=== PATIENT | female | born 1940 | race Caucasian/White ===

== ENCOUNTER 2018-11-07 09:52 | Emergency (ER) | payer MEDICARE, BC ==
--- NOTE | 2018-11-07 10:17 | EDM.PDOC ---
ED HPI GENERAL MEDICAL PROBLEM - General Stated Complaint: PAIN IN BOTH FEET AND SWOLLEN Time Seen by Provider: 11/07/18 10:30 Source of Information: Reports: Patient History Limitations: Reports: No Limitations - History of Present Illness INITIAL COMMENTS - FREE TEXT/NARRATIVE: Patient is a 78-year-old female who presents today with concern for the bottom of her feet hurting so bad that she can't walk. She states this started last night while she was at supper and by the time she got home it was so painful she was unable to walk. She is quite concerned because she needs to be able to walk and to take care of her . She also has chronic pain in her hips and knees which makes it difficult to walk as well, but she denies any pain in her feet until last night. She states she did have some tingling which she always thought was from the diabetes. She has history of chronic musculoskeletal pain of many kinds per her report. Extensive history of diabetes, uncertain what her last A1c was. She denies any back pain or any troubles with her balance. She denies any other significant past medical history except for a stroke a few years ago, at that time was having trouble with balance but then seemed to resolve. No recent new or different medications. She does not note any numbness , she has no problem in her hands, she has no joint swelling. She tried taking some meloxicam last night but it didn't help at all. Bilateral Feet Pain Score (Numeric/FACES): 8 - Related Data Allergies Allergy/AdvReac Type Severity Reaction Status Date / Time No Known Allergies Allergy Verified 11/07/18 10:12 Home Meds: Home Meds Acetaminophen with Codeine [Acetaminophen-Cod #3] 1 tab PO Q6H PRN 11/07/18 [ History] Gabapentin [Neurontin] 300 mg PO BID #14 cap 11/07/18 [Rx] Levothyroxine 75 mcg PO DAILY 11/07/18 [History] Meloxicam 15 mg PO DAILY 11/07/18 [History] Triamterene/Hydrochlorothiazid [Triamterene-HCTZ 37.5-25 MG] 1 tab PO DAILY 01/15 [History] metFORMIN [Glucophage] 1,000 mg PO BID 11/07/18 [History] Past Medical History Musculoskeletal History: Reports: Fibromyalgia, Osteoarthritis Neurological History: Reports: CVA Endocrine/Metabolic History: Reports: Diabetes, Type II, Obesity/BMI 30+ Social & Family History - Family History Family Medical History: Noncontributory - Tobacco Use Smoking Status *Q: Never Smoker - Caffeine Use Caffeine Use: Reports: None - Alcohol Use Alcohol Use History: No - Recreational Drug Use Recreational Drug Use: No ED ROS GENERAL - Review of Systems Review Of Systems: ROS reveals no pertinent complaints other than HPI. ED EXAM, GENERAL - Physical Exam Exam: See Below Free Text/Narrative:: Gen.: Alert, no acute distress. Heart is regular rate and rhythm, lungs are clear throughout with no wheezes or crackles. Abdomen obese, soft nontender. Peripheral pulses +2 in both the upper and lower extremities. There is no joint swelling. Very slight trace of lower extremity edema creating a sock line, which she states is normal for her. The bottoms of the feet appear to have dry skin but otherwise no redness or signs of cellulitis, there is no open lesions or wounds, and there is no significant swelling anywhere in the feet. Dorsalis pedis pulses are palpable. There is hypertrophy of the nails and the large great toenail is missing on both sides. Proprioception difficult to tell if it is intact in the big toe. She seems to have sensation everywhere grossly, monofilament not performed. She is able to flex and extend her ankles without difficulty Course - Vital Signs Text/Narrative:: exam does not show any obvious abnormalities. History most consistent with diabetic neuropathy or other peripheral neuropathy, but seems like very quick onset. Will get xrays. Last Recorded V/S: Last Vital Signs Temp 36.8 C 11/07/18 09:52 Pulse 92 11/07/18 09:52 Resp 18 11/07/18 09:52 BP 142/58 H 11/07/18 09:52 Pulse Ox 94 L 11/07/18 09:52 - Orders/Labs/Meds Meds: Medications Discontinued Medications Generic Name Dose Route Start Last Admin Trade Name Jaquelin PRN Reason Stop Dose Admin Gabapentin 100 mg 11/07/18 12:28 11/07/18 12:42 Neurontin PO 11/07/18 12:29 100 mg ONETIME ONE Administration - Re-Assessments/Exams Free Text/Narrative Re-Assessment/Exam: 11/07/18 xray reviewed, Osteoarthritis but no fractures seen. Official read pending. recommended followup with PCP very soon to re-assess. Given Rx for low dose gabapentin to start over the next couple days. Departure - Departure Time of Disposition: 12:23 Disposition: Home, Self-Care 01 Condition: Good Clinical Impression: Peripheral neuropathy - Discharge Information *PRESCRIPTION DRUG MONITORING PROGRAM REVIEWED*: Yes *COPY OF PRESCRIPTION DRUG MONITORING REPORT IN PATIENT TAMIKO: No Prescriptions: Gabapentin [Neurontin] 300 mg PO BID #14 cap Instructions: Peripheral Neuropathy Referrals: Bjorn Meza MD [Primary Care Provider] - Additional Instructions: Started dose of gabapentin given here, and prescription given to picking crew supervisor. He may take a second dose tonight if you want. Recommend this point to take just twice a day, and follow up with PCP within the next few days to determine further course of action. No signs of acute infection and I do not see a fracture on the x-ray. It does look like you have some arthritis in your feet. If the radiologist has other x- ray findings we will give you a call Given the possibility of inflammation due to arthritis, recommend taking the meloxicam regularly for just the next couple of days.
[2018-11-07] MEDS ORDERED: Gabapentin 100 MG Cap PO ONE (12:28)
--- NOTE | 2018-11-07 15:00 | CR ---
INDICATION: Bilateral foot pain, no history of injury. BILATERAL FEET: Three views of the feet were obtained with a total of 6 images and revealed degenerative changes at the DIPJs of the 2nd and 3rd toes of the left foot to a minimal degree and very minimal at the 4th toe distal interphalangeal joint. There are also some minimal degenerative changes at the 1st metatarsotarsal joint on the left and minimally on the right. Also on both sides, there is very minimal degenerative change at the 1st metatarsophalangeal joints. At the distal interphalangeal joints of the 3rd and 4th toes, as well as 5th toe of the right foot, there are also degenerative changes, which are most severe at the 2nd and 3rd toes. There also appears to be some degenerative change at the PIPJ of the 3rd toe on the right. Plantar calcaneal spurs of moderately large size are noted, larger on the left than right. There are some hypertrophic changes at the left tarsus, especially the naviculocuneiform joint. Calcification is noted at the Achilles tendon insertion on the right, which may be on the basis of previous injury in that area with dystrophic calcification. A definite acute fracture or dislocation was not identified. IMPRESSION: Osteoarthritis and calcaneal spurs, as noted above. MTDD
== END 2018-11-07 13:05 | disposition home or self-care (01) ==
LOC: FB.ED 09:52
DX: G62.9 Polyneuropathy, unspecified (principal); E11.9 Type 2 diabetes mellitus without complications; M19.90 Unspecified osteoarthritis, unspecified site; E66.9 Obesity, unspecified; Z68.35 Body mass index [BMI] 35.0-35.9, adult; Z79.84 Long term (current) use of oral hypoglycemic drugs; Z79.899 Other long term (current) drug therapy
CPT/HCPCS: 73630; 82962; 99284; A9270

== ENCOUNTER 2020-01-12 16:39 | Emergency (ER) | payer BC, MEDICARE ==
[2020-01-12] MEDS ORDERED: Ondansetron 4 MG Tab.DIS PO ONE (16:40)
[2020-01-12] MEDS ORDERED: Ondansetron 4 MG/2 ML SDV IVPUSH PRN (17:37)
[2020-01-12] MEDS ORDERED: Sodium Chloride 0.9% 1,000 ML IV SCH (17:45)
--- NOTE | 2020-01-12 21:18 | PCM.SN.2 ---
- Free Text/Narrative Note: 79-year-old female who was seen by Dr. Field. Please see his note in regard to this emergency department visit. She was turned over to me pending IV fluids and for reevaluation after the IV fluids. Briefly, the patient developed nasal congestion, cough, body aches, fever and malaise approximately 6 days ago. She was seen in the clinic and tested recoded and apparently that test came back positive for Dr. Field. The past 2 days the patient has had vomiting and diarrhea and she reports that the vomiting has been nonbilious and the diarrhea has been loose, nonbloody and only small amounts. She has not been eating that well and has been trying to drink liquids but not drinking that well. She has had urine output but less than usual. No shortness of breath. Her major complaint are fever and the nausea with vomiting. Physical examination: The patient is awake and alert. She does not appear toxic. She is having no respiratory stress. Her pharynx appears moist. Her neck is supple. Chest shows good oral excursion with no increased work of breathing. Her extremities are well perfused. Neurologic she will follow Dr. Obrien Her CBC was normal. A BUN was 42 and a creatinine was 1.9. Urinalysis showed no definite infection. ED course: She is status post 1 L of normal saline IV as a bolus. She reports she feels improved. She also was given Zofran IV. She has some mild nausea but has had no more vomiting since in the emergency department. She has been able to drink liquids in the emergency department without problems. As was stated, she feels tired but improved and is feeling ready for discharge home. Assessment: COVID 19 production. Vomiting and diarrhea with dehydration. Mild acute kidney injury. Plan: The patient was given a prescription for Zofran 4 mg ODT and also Imodium 2 mg capsules. She was given a dose of the Imodium in the emergency department. See her discharge instructions.
[2020-01-12] MEDS ORDERED: Loperamide 2 MG Cap PO ONE (21:45)
--- NOTE | 2020-01-13 14:41 | CR ---
INDICATION: Cough. CHEST TWO VIEWS: PA and lateral views of the chest were obtained 01/12/20 and reveal the heart to be normal in size transversely. However, on the lateral view there is question of a mild degree of left ventricular enlargement. The aorta is somewhat tortuous with minimal calcification suggested in the arch. An active infiltrate or effusion was not identified. Evidence of exogenous obesity is noted. Dextroconvex scoliosis of the lower middle thoracic spine is noted with bridging hyperostotic changes in the mid thoracic spine. IMPRESSION: No acute process - findings as noted above. MTDD
== END 2020-01-12 22:29 | disposition home or self-care (01) ==
LOC: FB.ED 16:39
DX: K52.9 Noninfective gastroenteritis and colitis, unspecified (principal); U07.1 COVID-19; E11.42 Type 2 diabetes mellitus with diabetic polyneuropathy; I10 Essential (primary) hypertension; E03.9 Hypothyroidism, unspecified; E66.9 Obesity, unspecified; Z79.899 Other long term (current) drug therapy
CPT/HCPCS: 36415; 71046; 80053; 81001; 83615; 85025; 96374; 99284; A9270; J2405; J7030

== ENCOUNTER 2021-02-27 09:49 | Observation (INO) | payer MEDICARE ==
[2021-02-27] MEDS ORDERED: Sodium Chloride 0.9% 10 ML Syringe FLUSH PRN (09:51)
[2021-02-27] MEDS ORDERED: Albuterol/Ipratropium 3.0-0.5 MG/3 ML Neb Soln NEB STA (09:57)
[2021-02-27] MEDS ORDERED: Ketorolac 30 MG/ML SDV IVPUSH STA (09:57)
[2021-02-27] MEDS ORDERED: methylPREDNISolone Sodium Succinate 125 MG/2 ML SDV IVPUSH STA (09:57)
[2021-02-27] MEDS ORDERED: Sodium Chloride 0.9% 1,000 ML IV SCH ×2 (10:00→15:15)
[2021-02-27] MEDS ORDERED: Acetaminophen/HYDROcodone 325-5 MG Tab PO STA (10:11)
[2021-02-27] MEDS ORDERED: Morphine 2 MG/ML SYRINGE IVPUSH STA (12:14)
--- NOTE | 2021-02-27 12:14 | EDM.PDOC ---
ED HPI GENERAL MEDICAL PROBLEM - General Stated Complaint: LEG PAIN Time Seen by Provider: 02/27/21 10:00 Source of Information: Reports: Patient, Family History Limitations: Reports: No Limitations - History of Present Illness INITIAL COMMENTS - FREE TEXT/NARRATIVE: Patient is a 80 YO WM who presented to the ED because of sever pain on her feet and leg. She described it as stabbing and shocklike sensation,9/10 which got worse since yesterday. She is no t able to step on her feet because of the pain. She has has a history of peripheral neuropathy and feels like it. She took her pregabalin without any relief. Bilateral Feet Pain Score (Numeric/FACES): 4 - Related Data Allergies Allergy/AdvReac Type Severity Reaction Status Date / Time No Known Allergies Allergy Verified 01/12/20 21:02 Home Meds: Home Meds Acetaminophen with Codeine [Acetaminophen-Cod #3] 1 tab PO Q6H PRN 11/07/18 [History] Levothyroxine 88 mcg PO DAILY 11/07/18 [History] Triamterene/Hydrochlorothiazid [Triamterene-HCTZ 37.5-25 MG] 1 tab PO DAILY 11/07/18 [History] Loperamide [Imodium] 2 mg PO ASDIRECTED #12 cap 01/12/20 [Rx] Acetaminophen/Codeine [Tylenol with Codeine No.3 300MG/30MG] 1 tab PO BEDTIME 02/27/21 [History] Dextrin [Fiber] 1 scoop PO DAILY 02/27/21 [History] Metoprolol Succinate 50 mg PO DAILY 02/27/21 [History] Pregabalin [Lyrica] 25 mg PO BID 02/27/21 [History] amLODIPine [Norvasc] 5 mg PO DAILY 02/27/21 [History] cephALEXin [Cephalexin] 250 mg PO TID 02/27/21 [History] glipiZIDE [Glipizide ER] 5 mg PO DAILY 02/27/21 [History] glipiZIDE [Glipizide ER] 10 mg PO DAILY 02/27/21 [History] hydrOXYzine pamoate [Hydroxyzine Pamoate] 25 mg PO BEDTIME 02/27/21 [History] Past Medical History Musculoskeletal History: Reports: Fibromyalgia, Osteoarthritis Neurological History: Reports: CVA Endocrine/Metabolic History: Reports: Diabetes, Type II, Obesity/BMI 30+ - Infectious Disease History Infectious Disease History: Reports: Chicken Pox, Measles, Mumps Social & Family History - Family History Family Medical History: No Pertinent Family History - Caffeine Use Caffeine Use: Reports: Coffee ED ROS GENERAL - Review of Systems Review Of Systems: See Below Constitutional: Reports: No Symptoms HEENT: Reports: No Symptoms Respiratory: Reports: No Symptoms Cardiovascular: Reports: No Symptoms Endocrine: Reports: No Symptoms GI/Abdominal: Reports: No Symptoms : Reports: No Symptoms Musculoskeletal: Reports: Other (bilateral foot pain) Skin: Reports: No Symptoms Neurological: Reports: No Symptoms Psychiatric: Reports: No Symptoms Hematologic/Lymphatic: Reports: No Symptoms ED EXAM, GENERAL - Physical Exam Exam: See Below Exam Limited By: No Limitations General Appearance: Alert, No Apparent Distress Ears: Normal External Exam, Normal Canal Nose: Normal Inspection, Normal Mucosa, No Blood Throat/Mouth: Normal Inspection, Normal Lips, Normal Teeth, Normal Gums, Normal Oropharynx, Normal Voice Head: Atraumatic, Normocephalic Neck: Normal Inspection, Supple, Non-Tender, Full Range of Motion Respiratory/Chest: No Respiratory Distress, Lungs Clear, Normal Breath Sounds, No Accessory Muscle Use, Chest Non-Tender Cardiovascular: Normal Peripheral Pulses, Regular Rate, Rhythm, No Edema, No Gallop, No JVD, No Murmur, No Rub GI/Abdominal: Normal Bowel Sounds, Soft, Non-Tender, No Organomegaly, No Distention, No Abnormal Bruit Back Exam: Normal Inspection, Full Range of Motion Extremities: Normal Inspection, Normal Range of Motion, Non-Tender, No Pedal Edema, Normal Capillary Refill Neurological: Alert, Oriented, CN II-XII Intact, Normal Cognition, Normal Gait, Normal Reflexes, No Motor/Sensory Deficits Psychiatric: Normal Affect, Normal Mood Skin Exam: Warm, Dry, Intact, Normal Color, No Rash Course - Vital Signs Text/Narrative:: Lab tresult was reviewed and discussed with patient and her daughter Last Recorded V/S: Last Vital Signs Temp 37.0 C 02/28/21 05:30 Pulse 73 02/28/21 05:30 Resp 16 02/28/21 05:30 BP 124/71 02/28/21 05:30 Pulse Ox 93 L 02/28/21 05:30 - Orders/Labs/Meds Orders: Active Orders 24 hr Category Date Time Status Patient Status [ADT] Routine ADT 02/27/21 15:03 Active Oxygen Therapy [RC] PRN Care 02/27/21 15:03 Active Pulse Oximetry [RC] PRN Care 02/27/21 15:05 Active Up With Assistance [RC] ASDIRECTED Care 02/27/21 15:03 Active VTE/DVT Education [RC] Per Unit Routine Care 02/27/21 15:03 Active Vital Signs [RC] 08,12,16,20,00,04 Care 02/27/21 15:03 Active Heart Healthy Diet [DIET] Diet 02/27/21 Dinner Active Chest 1V Frontal [CR] Stat Exams 02/27/21 09:55 Taken Acetaminophen/HYDROcodone [[place] 325-5 MG] Med 02/27/21 15:03 Active 1 tab PO Q4H PRN Docusate Sodium/Sennosides [Senna Plus] Med 02/27/21 15:03 Active 1 tab PO BID PRN Ondansetron [Zofran] Med 02/27/21 15:03 Active 4 mg IV Q4H PRN Sodium Chloride 0.9% [Saline Flush] Med 02/27/21 09:51 Active 10 ml FLUSH ASDIRECTED PRN Saline Lock Insert [OM.PC] Routine Oth 02/27/21 09:51 Ordered Sequential Compression Device [OM.PC] Per Unit Routine Oth 02/27/21 15:05 Ordered Medication Orders Acetaminophen/Codeine Phosphate (Acetaminophen/Codeine 300-30 Mg Tab) 1 tab PO BEDTIME [facility] Last Admin: 02/27/21 20:39 Dose: 1 tab Documented by: BONNIE Acetaminophen/Codeine Phosphate (Acetaminophen/Codeine 300-30 Mg Tab) 1 tab PO Q6H PRN PRN Reason: Pain Hydrocodone Bitart/Acetaminophen (Acetaminophen/Hydrocodone 325-5 Mg Tab) 1 tab PO Q4H PRN PRN Reason: Pain Amlodipine Besylate (Amlodipine 5 Mg TabOwn Med) 5 mg PO DAILY [facility] Cephalexin (Cephalexin 250 Mg CapOwn Med) 250 mg PO TID [facility] Stop: 02/28/21 21:01 Last Admin: 02/27/21 20:41 Dose: 250 mg Documented by: BONNIE Enoxaparin Sodium (Enoxaparin 30 Mg/0.3 Ml Syringe) 30 mg SUBCUT Q24H [facility] Last Admin: 02/27/21 16:44 Dose: 30 mg Documented by: FATOUMATA Glipizide (Glipizide 10 Mg Tab.ErOwn Med) 10 mg PO DAILY [facility] Glipizide (Glipizide 5 Mg Tab.ErOwn Med) 5 mg PO DAILY [facility] Levothyroxine Sodium (Levothyroxine 88 Mcg TabOwn Med) 88 mcg PO ACBREAKFAST [facility] Last Admin: 02/28/21 06:20 Dose: 88 mcg Documented by: BONNIE Loperamide HCl (Loperamide 2 Mg Cap) 2 mg PO ASDIRECTED [facility] Metoprolol Succinate (Metoprolol Succinate 50 Mg Tab.ErOwn Med) 50 mg PO DAILY [facility] Morphine Sulfate (Morphine 2 Mg/Ml Syringe) 2 mg IVPUSH Q6H PRN PRN Reason: Pain Dextrin [Fiber] 350 (Gm PowderOwn Med) 1 scoop PO DAILY [facility] Hydroxyzine Pamoate 25 Mg CapsuleOwn Med 25 mg PO BEDTIME [facility] Last Admin: 02/27/21 20:41 Dose: 25 mg Documented by: BONNIE Ondansetron HCl (Ondansetron 4 Mg/2 Ml Sdv) 4 mg IV Q4H PRN PRN Reason: Nausea/Vomiting Pregabalin (Pregabalin 25 Mg Cap) 25 mg PO BID [facility] Last Admin: 02/27/21 20:41 Dose: 25 mg Documented by: BONNIE Senna/Docusate Sodium (Docusate Sodium/Sennosides 50-8.6 Mg Tab) 1 tab PO BID PRN PRN Reason: Constipation Sodium Chloride (Sodium Chloride 0.9% 10 Ml Syringe) 10 ml FLUSH ASDIRECTED PRN PRN Reason: Keep Vein Open Triamterene/Hydrochlorothiazide (Hydrochlorothiazide/Triamterene 25-37.5 TabOwn Med) 1 each PO DAILY [facility] Labs: Laboratory Tests 02/27/21 02/27/21 Range/Units 10:32 10:32 WBC 11.5 H (3.0-10.3) x10-3/uL RBC 4.23 (3.60-5.20) x10(6)uL Hgb 12.3 (11.4-15.5) g/dL Hct 38.6 (34.2-48.2) % MCV 91.3 (76.7-100.5) fL MCH 29.0 (23.9-33.9) pg MCHC 31.8 L (31.9-34.8) g/dL RDW 13.2 (12.3-16.5) % Plt Count 287 (151-488) x10(3)uL MPV 8.0 (7.1-12.4) fL Neut % (Auto) 79.7 H (30.8-76.2) % Lymph % (Auto) 11.8 L (18.4-52.1) % [place] % (Auto) 7.0 (4.4-15.7) % Eos % (Auto) 0.9 (0.6-8.1) % Baso % (Auto) 0.6 (0.2-1.5) % Neut # (Auto) 9.2 H (1.5-6.3) x10-3/uL Lymph # (Auto) 1.4 (1.0-4.4) x10-3/uL [place] # (Auto) 0.8 (0.3-1.0) x10-3/uL Eos # (Auto) 0.1 (0.0-0.8) x10-3/uL Baso # (Auto) 0.1 (0.0-0.1) x10-3/uL Sodium 141 (135-145) mmol/L Potassium 3.8 (3.5-5.3) mmol/L Chloride 104 (100-110) mmol/L Carbon Dioxide 25 (21-32) mmol/L BUN 47 H (7-18) mg/dL Creatinine 2.0 H* (0.55-1.02) mg/dL Est Cr Clr Drug Dosing TNP Estimated GFR (MDRD) 24 L (>60) BUN/Creatinine Ratio 23.5 H (9-20) Glucose 219 H D (80-116) mg/dL Calcium 9.4 (8.6-10.2) mg/dL Total Bilirubin 0.3 (0.1-1.3) mg/dL AST 17 D (5-25) IU/L ALT 20 D (12-36) U/L Alkaline Phosphatase 142 H (56-112) IU/L Total Protein 7.9 (6.0-8.0) g/dL Albumin 3.6 (3.2-4.6) g/dL Globulin 4.3 g/dL Albumin/Globulin Ratio 0.8 Meds: Medications Generic Name Dose Route Start Last Admin Trade Name Freq PRN Reason Stop Dose Admin Acetaminophen/Codeine Phosphate 1 tab 02/27/21 21:00 02/27/21 20:39 Acetaminophen/Codeine 300-30 Mg Tab PO 1 tab BEDTIME [facility] Administration Acetaminophen/Codeine Phosphate 1 tab 02/27/21 17:33 Acetaminophen/Codeine 300-30 Mg Tab PO Q6H PRN Pain Hydrocodone Bitart/Acetaminophen 1 tab 02/27/21 15:03 Acetaminophen/Hydrocodone 325-5 Mg Tab PO Q4H PRN Pain Amlodipine Besylate 5 mg 02/28/21 09:00 Amlodipine 5 Mg TabOwn Med PO DAILY [facility] Cephalexin 250 mg 02/27/21 21:00 02/27/21 20:41 Cephalexin 250 Mg CapOwn Med PO 02/28/21 21:01 250 mg TID [facility] Administration Enoxaparin Sodium 30 mg 02/27/21 16:30 02/27/21 16:44 Enoxaparin 30 Mg/0.3 Ml Syringe SUBCUT 30 mg Q24H [facility] Administration Glipizide 10 mg 02/28/21 09:00 Glipizide 10 Mg Tab.ErOwn Med PO DAILY [facility] Glipizide 5 mg 02/28/21 09:00 Glipizide 5 Mg Tab.ErOwn Med PO DAILY [facility] Levothyroxine Sodium 88 mcg 02/28/21 07:30 02/28/21 06:20 Levothyroxine 88 Mcg TabOwn Med PO 88 mcg ACBREAKFAST [facility] Administration Loperamide HCl 2 mg 02/27/21 17:45 Loperamide 2 Mg Cap PO ASDIRECTED [facility] Metoprolol Succinate 50 mg 02/28/21 09:00 Metoprolol Succinate 50 Mg Tab.ErOwn Med PO DAILY [facility] Morphine Sulfate 2 mg 02/27/21 17:34 Morphine 2 Mg/Ml Syringe IVPUSH Q6H PRN Pain Dextrin [Fiber] 350 1 scoop 02/28/21 09:00 Gm PowderOwn Med PO DAILY [facility] Hydroxyzine Pamoate 25 mg 02/27/21 21:00 02/27/21 20:41 25 Mg CapsuleOwn PO 25 mg Med BEDTIME [facility] Administration Ondansetron HCl 4 mg 02/27/21 15:03 Ondansetron 4 Mg/2 Ml Sdv IV Q4H PRN Nausea/Vomiting Pregabalin 25 mg 02/27/21 21:00 02/27/21 20:41 Pregabalin 25 Mg Cap PO 25 mg BID [facility] Administration Senna/Docusate Sodium 1 tab 02/27/21 15:03 Docusate Sodium/Sennosides 50-8.6 Mg Tab PO BID PRN Constipation Sodium Chloride 10 ml 02/27/21 09:51 Sodium Chloride 0.9% 10 Ml Syringe FLUSH ASDIRECTED PRN Keep Vein Open Triamterene/Hydrochlorothiazide 1 each 02/28/21 09:00 Hydrochlorothiazide/Triamterene 25-37.5 TabOwn Med PO DAILY [facility] Discontinued Medications Generic Name Dose Route Start Last Admin Trade Name Freq PRN Reason Stop Dose Admin Hydrocodone Bitart/Acetaminophen 2 tab 02/27/21 10:11 02/27/21 11:15 Acetaminophen/Hydrocodone 325-5 Mg Tab PO 02/27/21 10:12 2 tab NOW STA Administration Albuterol/Ipratropium 3 ml 02/27/21 09:57 02/27/21 14:59 Albuterol/Ipratropium 3.0-0.5 Mg/3 Ml Neb Soln NEB 02/27/21 09:58 Not Given NOW STA Enoxaparin Sodium 40 mg 02/27/21 15:15 Enoxaparin 40 Mg/0.4 Ml Syringe SUBCUT Q24H [facility] Hydromorphone HCl 1 mg 02/27/21 13:03 02/27/21 13:07 Hydromorphone 2 Mg/Ml Sdv IVPUSH 02/27/21 13:04 1 mg NOW STA Administration Sodium Chloride 1,000 mls @ 999 mls/hr 02/27/21 10:00 02/27/21 11:15 Normal Saline IV 999 mls/hr ASDIRECTED [facility] Administration Sodium Chloride 1,000 mls @ 125 mls/hr 02/27/21 15:15 02/27/21 16:45 Normal Saline IV 125 mls/hr ASDIRECTED [facility] Administration Ketorolac Tromethamine 30 mg 02/27/21 09:57 02/27/21 14:58 Ketorolac 30 Mg/Ml Sdv IVPUSH 02/27/21 09:58 30 mg NOW STA Administration Methylprednisolone Sodium Succinate 125 mg 02/27/21 09:57 02/27/21 15:00 Methylprednisolone Sodium Succinate 125 Mg/2 Ml Sdv IVPUSH 02/27/21 09:58 Not Given NOW STA Morphine Sulfate 2 mg 02/27/21 12:14 02/27/21 14:59 Morphine 2 Mg/Ml Syringe IVPUSH 02/27/21 12:15 Not Given NOW STA Morphine Sulfate 2 mg 02/27/21 15:15 02/27/21 15:55 Morphine 2 Mg/Ml Syringe IVPUSH Not Given Q2H [facility] Pregabalin 25 mg 02/27/21 21:00 02/27/21 20:39 Pregabalin 25 Mg CapOwn Med PO 25 mg BID [facility] Administration Departure - Departure Time of Disposition: 15:00 Disposition: Refer to Observation Condition: Good Clinical Impression: Peripheral neuropathy, Dehydration, BONNIE (acute kidney injury), Diabetes mellitus Hypertension Qualifiers: Hypertension type: primary hypertension Qualified Code(s): I10 - Essential (primary) hypertension - Discharge Information - My Orders Last 24 Hours: My Active Orders 02/27/21 09:51 Sodium Chloride 0.9% [Saline Flush] 10 ml FLUSH ASDIRECTED PRN Saline Lock Insert [OM.PC] Routine 02/27/21 09:55 Chest 1V Frontal [CR] Stat 02/27/21 15:03 Patient Status [ADT] Routine Oxygen Therapy [RC] PRN Up With Assistance [RC] ASDIRECTED VTE/DVT Education [RC] Per Unit Routine Vital Signs [RC] 08,12,16,20,00,04 Acetaminophen/HYDROcodone [[place] 325-5 MG] 1 tab PO Q4H PRN Docusate Sodium/Sennosides [Senna Plus] 1 tab PO BID PRN Ondansetron [Zofran] 4 mg IV Q4H PRN 02/27/21 15:05 Pulse Oximetry [RC] PRN Sequential Compression Device [OM.PC] Per Unit Routine 02/27/21 Dinner Heart Healthy Diet [DIET] - Assessment/Plan Last 24 Hours: My Active Orders 02/27/21 09:51 Sodium Chloride 0.9% [Saline Flush] 10 ml FLUSH ASDIRECTED PRN Saline Lock Insert [OM.PC] Routine 02/27/21 09:55 Chest 1V Frontal [CR] Stat 02/27/21 15:03 Patient Status [ADT] Routine Oxygen Therapy [RC] PRN Up With Assistance [RC] ASDIRECTED VTE/DVT Education [RC] Per Unit Routine Vital Signs [RC] 08,12,16,20,00,04 Acetaminophen/HYDROcodone [[place] 325-5 MG] 1 tab PO Q4H PRN Docusate Sodium/Sennosides [Senna Plus] 1 tab PO BID PRN Ondansetron [Zofran] 4 mg IV Q4H PRN 02/27/21 15:05 Pulse Oximetry [RC] PRN Sequential Compression Device [OM.PC] Per Unit Routine 02/27/21 Dinner Heart Healthy Diet [DIET]
[2021-02-27] MEDS ORDERED: HYDROmorphone 2 MG/ML SDV IVPUSH STA (13:03)
[2021-02-27] MEDS ORDERED: Ondansetron 4 MG/2 ML SDV IV PRN (15:03)
[2021-02-27] MEDS ORDERED: Acetaminophen/HYDROcodone 325-5 MG Tab PO PRN (15:03)
[2021-02-27] MEDS ORDERED: Enoxaparin 40 MG/0.4 ML Syringe SUBCUT SCH (15:15)
[2021-02-27] MEDS: Morphine 2 MG/ML SYRINGE IVPUSH SCH (15:55)
[2021-02-27] MEDS: Enoxaparin 30 MG/0.3 ML Syringe SUBCUT SCH (16:44)
[2021-02-27] MEDS ORDERED: Acetaminophen/Codeine 300-30 MG Tab PO PRN (17:33)
[2021-02-27] MEDS ORDERED: Morphine 2 MG/ML SYRINGE IVPUSH PRN (17:34)
--- NOTE | 2021-02-27 17:37 | PCM.HP.2 ---
H&P History of Present Illness - General Date of Service: 02/27/21 Admit Problem/Dx: Admission Diagnosis/Problem Admission Diagnosis/Problem Weakness Source of Information: Patient, Provider History Limitations: Reports: No Limitations - History of Present Illness Initial Comments - Free Text/Narative: This is a 80-year-old female admitted to the ER because of inability to walk. She complains of severe leg and feet pain which has gotten worse practically overnight. She does have a prior history of peripheral neuropathy, type 2 diabetes obesity. She describes paresthesias and while at home she was unable to support herself. She lives at home independently. She has a history of MDD,HTN, and chronic kidney disease, with a baseline creatinine 1.8 Bilateral Feet Pain Score (Numeric/FACES): 4 - Related Data Allergies/Adverse Reactions: Allergies Allergy/AdvReac Type Severity Reaction Status Date / Time No Known Allergies Allergy Verified 01/12/20 21:02 Home Medications: Home Meds Acetaminophen with Codeine [Acetaminophen-Cod #3] 1 tab PO Q6H PRN 11/07/18 [Hi story] Levothyroxine 88 mcg PO DAILY 11/07/18 [History] Triamterene/Hydrochlorothiazid [Triamterene-HCTZ 37.5-25 MG] 1 tab PO DAILY 11/07/18 [History] Loperamide [Imodium] 2 mg PO ASDIRECTED #12 cap 01/12/20 [Rx] Acetaminophen/Codeine [Tylenol with Codeine No.3 300MG/30MG] 1 tab PO BEDTIME 02/27/21 [History] Dextrin [Fiber] 1 scoop PO DAILY 02/27/21 [History] Metoprolol Succinate 50 mg PO DAILY 02/27/21 [History] Pregabalin [Lyrica] 25 mg PO BID 02/27/21 [History] amLODIPine [Norvasc] 5 mg PO DAILY 02/27/21 [History] cephALEXin [Cephalexin] 250 mg PO TID 02/27/21 [History] glipiZIDE [Glipizide ER] 5 mg PO DAILY 02/27/21 [History] glipiZIDE [Glipizide ER] 10 mg PO DAILY 02/27/21 [History] hydrOXYzine pamoate [Hydroxyzine Pamoate] 25 mg PO BEDTIME 02/27/21 [History] Past Medical History HEENT History: Reports: Cataract Cardiovascular History: Reports: Hypertension Respiratory History: Reports: Sleep Apnea Gastrointestinal History: Reports: Other (See Below) Other Gastrointestinal History: Bulemia as young girl Genitourinary History: Reports: Chronic Renal Insuffiency, Diabetic Nephropathy BUTTER[employer]INUOUS CHURN History: Reports: , Spontaneous Other OB/BYN History: 4 pregancies Musculoskeletal History: Reports: Arthritis, Fibromyalgia Neurological History: Reports: CVA Psychiatric History: Reports: Anxiety Endocrine/Metabolic History: Reports: Diabetes, Type II, Hypothyroidism, Obesity/BMI 30+ Immunologic History: Reports: None Oncologic (Cancer) History: Reports: Other (See Below) Other Oncologic History: Facial skin CA Dermatologic History: Reports: Other (See Below) Other Dermatologic History: facial skin cancer - Infectious Disease History Infectious Disease History: Reports: Chicken Pox, Measles, Mumps - Past Surgical History HEENT Surgical History: Reports: Cataract Surgery, Oral Surgery Other HEENT Surgeries/Procedures: dentures Respiratory Surgical History: Reports: None GI Surgical History: Reports: Colonoscopy Female Surgical History: Reports: Salpingo-Oophorectomy Social & Family History - Family History Family Medical History: No Pertinent Family History - Tobacco Use Tobacco Use Status *Q: Never Tobacco User Second Hand Smoke Exposure: No - Caffeine Use Caffeine Use: Reports: None - Recreational Drug Use Recreational Drug Use: No H&P Review of Systems - Review of Systems: Review Of Systems: Comprehensive ROS is negative, except as noted in HPI. Exam - Exam Exam: See Below - Vital Signs Weight: 107.7 kg - Exam General: Alert HEENT: PERRLA Neck: Supple Lungs: Clear to Auscultation Cardiovascular: Regular Rate (Female) Exam: Deferred Rectal (Female) Exam: Deferred Skin: Warm Neurological: Cranial Nerves Intact, Reflexes Equal Bilateral Neuro Extensive - Mental Status: Alert, Oriented x3 Neuro Extensive - Motor, Sensory, Reflexes: CN II-XII Intact Psychiatric: Alert, Normal Affect - Patient Data Lab Results Last 24 hrs: Laboratory Results - last 24 hr 02/27/21 02/27/21 Range/Units 10:32 10:32 WBC 11.5 H (3.0-10.3) x10-3/uL RBC 4.23 (3.60-5.20) x10(6)uL Hgb 12.3 (11.4-15.5) g/dL Hct 38.6 (34.2-48.2) % MCV 91.3 (76.7-100.5) fL MCH 29.0 (23.9-33.9) pg MCHC 31.8 L (31.9-34.8) g/dL RDW 13.2 (12.3-16.5) % Plt Count 287 (151-488) x10(3)uL MPV 8.0 (7.1-12.4) fL Neut % (Auto) 79.7 H (30.8-76.2) % Lymph % (Auto) 11.8 L (18.4-52.1) % [place] % (Auto) 7.0 (4.4-15.7) % Eos % (Auto) 0.9 (0.6-8.1) % Baso % (Auto) 0.6 (0.2-1.5) % Neut # (Auto) 9.2 H (1.5-6.3) x10-3/uL Lymph # (Auto) 1.4 (1.0-4.4) x10-3/uL [place] # (Auto) 0.8 (0.3-1.0) x10-3/uL Eos # (Auto) 0.1 (0.0-0.8) x10-3/uL Baso # (Auto) 0.1 (0.0-0.1) x10-3/uL Sodium 141 (135-145) mmol/L Potassium 3.8 (3.5-5.3) mmol/L Chloride 104 (100-110) mmol/L Carbon Dioxide 25 (21-32) mmol/L BUN 47 H (7-18) mg/dL Creatinine 2.0 H* (0.55-1.02) mg/dL Est Cr Clr Drug Dosing TNP Estimated GFR (MDRD) 24 L (>60) BUN/Creatinine Ratio 23.5 H (9-20) Glucose 219 H D (80-116) mg/dL Calcium 9.4 (8.6-10.2) mg/dL Total Bilirubin 0.3 (0.1-1.3) mg/dL AST 17 D (5-25) IU/L ALT 20 D (12-36) U/L Alkaline Phosphatase 142 H (56-112) IU/L Total Protein 7.9 (6.0-8.0) g/dL Albumin 3.6 (3.2-4.6) g/dL Globulin 4.3 g/dL Albumin/Globulin Ratio 0.8 Result Diagrams: 02/28/21 06:30 02/28/21 06:30 - Problem List (1) Inability to walk SNOMED Code(s): 355377086 ICD Code: R26.2 - DIFFICULTY IN WALKING, NOT ELSEWHERE CLASSIFIED Status: Acute Current Visit: Yes (2) Peripheral neuropathy SNOMED Code(s): 315121149 ICD Code: G62.9 - POLYNEUROPATHY, UNSPECIFIED Status: Acute Current Visit: Yes (3) Diabetes type 2, controlled SNOMED Code(s): 04929352, 475578409 ICD Code: E11.9 - TYPE 2 DIABETES MELLITUS WITHOUT COMPLICATIONS Status: Acute Current Visit: Yes Qualifiers: Diabetes mellitus assisted insulin use: with buttermaker continuous churn use Proliferative retinopathy type: stable (4) Obesity SNOMED Code(s): 184068013, 088117177 ICD Code: E66.9 - OBESITY, UNSPECIFIED Status: Acute Current Visit: Yes Qualifiers: Obesity type: unspecified obesity type (5) HTN (hypertension) SNOMED Code(s): 28999328 ICD Code: I10 - ESSENTIAL (PRIMARY) HYPERTENSION Status: Acute Current Visit: Yes Qualifiers: Hypertension type: primary hypertension Qualified Code(s): I10 - Essential (primary) hypertension (6) MDD (major depressive disorder) SNOMED Code(s): 306597958 ICD Code: F32.9 - MAJOR DEPRESSIVE DISORDER, SINGLE EPISODE, UNSPECIFIED Status: Acute Current Visit: Yes Qualifiers: Major depression recurrence: recurrent (7) Hypothyroidism SNOMED Code(s): 96027504 ICD Code: E03.9 - HYPOTHYROIDISM, UNSPECIFIED Status: Acute Current Visit: Yes Problem List Initiated/Reviewed/Updated: Yes Orders Last 24hrs: Active Orders 24 hr Category Date Time Status Patient Status [ADT] Routine ADT 02/27/21 15:03 Active Oxygen Therapy [RC] PRN Care 02/27/21 15:03 Active Pulse Oximetry [RC] PRN Care 02/27/21 15:05 Active Up With Assistance [RC] ASDIRECTED Care 02/27/21 15:03 Active VTE/DVT Education [RC] Per Unit Routine Care 02/27/21 15:03 Active Vital Signs [RC] Q4H Care 02/27/21 15:03 Active Consistent Carbohydrate Diet [DIET] Diet 02/27/21 Dinner Active Heart Healthy Diet [DIET] Diet 02/27/21 Dinner Active Chest 1V Frontal [CR] Stat Exams 02/27/21 09:55 Taken BASIC METABOLIC PANEL,BMP [CHEM] AM Lab 02/28/21 05:11 Ordered CBC WITH AUTO DIFF [HEME] AM Lab 02/28/21 05:11 Ordered CORONAVIRUS COVID-19 DEVORAH [MOLEC] Stat Lab 02/27/21 17:00 Received UA W/MICROSCOPIC [URIN] Stat Lab 02/27/21 09:53 Ordered Acetaminophen/Codeine [Tylenol with Codeine No.3 300MG/ Med 02/27/21 21:00 Ordered 30MG] 1 tab PO BEDTIME Acetaminophen/Codeine [Tylenol with Codeine No.3 300MG/ Med 02/27/21 17:33 Ordered 30MG] 1 tab PO Q6H PRN Acetaminophen/HYDROcodone [[place] 325-5 MG] Med 02/27/21 15:03 Active 1 tab PO Q4H PRN Dextrin [Fiber] Med 02/28/21 09:00 Ordered 1 scoop PO DAILY Docusate Sodium/Sennosides [Senna Plus] Med 02/27/21 15:03 Active 1 tab PO BID PRN Enoxaparin [Lovenox] Med 02/27/21 16:30 Active 30 mg SUBCUT Q24H HCTZ/Triamterene [Maxzide 25-37.5 MG] Med 02/28/21 09:00 Ordered 1 tab PO DAILY Levothyroxine Med 02/28/21 09:00 Ordered 88 mcg PO DAILY Loperamide [Imodium] Med 02/27/21 17:45 Ordered 2 mg PO ASDIRECTED Metoprolol Succinate [Toprol XL] Med 02/28/21 09:00 Ordered 50 mg PO DAILY Morphine Med 02/27/21 17:34 Ordered 2 mg IVPUSH Q6H PRN Ondansetron [Zofran] Med 02/27/21 15:03 Active 4 mg IV Q4H PRN Pregabalin [Lyrica] Med 02/27/21 21:00 Ordered 25 mg PO BID Sodium Chloride 0.9% [Saline Flush] Med 02/27/21 09:51 Active 10 ml FLUSH ASDIRECTED PRN amLODIPine [Norvasc] Med 02/28/21 09:00 Ordered 5 mg PO DAILY glipiZIDE [Glucotrol XL] Med 02/28/21 09:00 Ordered 10 mg PO DAILY hydrOXYzine pamoate [Hydroxyzine Pamoate] Med 02/27/21 21:00 Ordered 25 mg PO BEDTIME Saline Lock Insert [OM.PC] Routine Oth 02/27/21 09:51 Ordered Sequential Compression Device [OM.PC] Per Unit Routine Oth 02/27/21 15:05 Ordered Resuscitation Status Routine Resus Stat 02/27/21 17:35 Ordered Medication Orders Acetaminophen/Codeine Phosphate (Acetaminophen/Codeine 300-30 Mg Tab) 1 tab PO BEDTIME [facility]BIN Acetaminophen/Codeine Phosphate (Acetaminophen/Codeine 300-30 Mg Tab) 1 tab PO Q6H PRN PRN Reason: Pain Hydrocodone Bitart/Acetaminophen (Acetaminophen/Hydrocodone 325-5 Mg Tab) 1 tab PO Q4H PRN PRN Reason: Pain Amlodipine Besylate (Amlodipine 5 Mg Tab) 5 mg PO DAILY [facility] Enoxaparin Sodium (Enoxaparin 30 Mg/0.3 Ml Syringe) 30 mg SUBCUT Q24H CORBIN Last Admin: 02/27/21 16:44 Dose: 30 mg Documented by: FATOUMATA Glipizide (Glipizide 10 Mg Tab.Er) 10 mg PO DAILY [facility] Levothyroxine Sodium (Levothyroxine 75 Mcg Tab) 88 mcg PO DAILY [facility] Morphine Sulfate (Morphine 2 Mg/Ml Syringe) 2 mg IVPUSH Q6H PRN PRN Reason: Pain Non-Formulary Medication (Dextrin [Fiber]) 1 scoop PO DAILY [facility] Non-Formulary Medication (Hydroxyzine Pamoate [Hydroxyzine Pamoate]) 25 mg PO BEDTIME [facility] Ondansetron HCl (Ondansetron 4 Mg/2 Ml Sdv) 4 mg IV Q4H PRN PRN Reason: Nausea/Vomiting Senna/Docusate Sodium (Docusate Sodium/Sennosides 50-8.6 Mg Tab) 1 tab PO BID PRN PRN Reason: Constipation Sodium Chloride (Sodium Chloride 0.9% 10 Ml Syringe) 10 ml FLUSH ASDIRECTED PRN PRN Reason: Keep Vein Open Assessment/Plan Comment:: Admit for pain control,PT,OT.
[2021-02-27] MEDS ORDERED: Loperamide 2 MG Cap PO SCH (17:45)
[2021-02-27] MEDS: Acetaminophen/Codeine 300-30 MG Tab PO SCH (20:39)
[2021-02-27] MEDS: CEPHALEXIN 250 MG PO SCH (20:41)
[2021-02-27] MEDS: HYDROXYZINE PAMOATE 25 MG PO SCH (20:41)
[2021-02-27] MEDS: Pregabalin 25 MG Cap PO SCH (20:41)
[2021-02-27] MEDS ORDERED: PREGABALIN 25 MG PO SCH (21:00)
[2021-02-28] MEDS: Levothyroxine 88 MCG Tab**OWN MED PO SCH (06:20)
[2021-02-28] MEDS: DEXTRIN PO SCH (08:15)
[2021-02-28] MEDS: GLIPIZIDE 10 MG PO SCH (08:16)
[2021-02-28] MEDS: GLIPIZIDE 5 MG PO SCH (08:16)
[2021-02-28] MEDS: CEPHALEXIN 250 MG PO SCH ×3 (08:17→21:08)
[2021-02-28] MEDS: HYDROCHLOROTHIAZIDE PO SCH (08:17)
[2021-02-28] MEDS: TRIAMTERENE PO SCH (08:17)
[2021-02-28] MEDS: amLODIPine 5 MG Tab**OWN MED PO SCH (08:18)
[2021-02-28] MEDS: Metoprolol Succinate 50 MG Tab.ER**OWN MED PO SCH (08:18)
[2021-02-28] MEDS: Pregabalin 25 MG Cap PO SCH ×2 (08:22→21:06)
--- NOTE | 2021-02-28 09:09 | PCM.PN ---
- General Info Date of Service: 02/28/21 Subjective Update: He is a 80-year-old female, was admitted for pain in the legs. This morning she has pain in the right knee, along with bilateral feet pain,denies any back pain. Functional Status: Reports: Pain Controlled, Tolerating Diet. Denies: Ambul ating - Review of Systems Pulmonary: Reports: No Symptoms Cardiovascular: Reports: No Symptoms Gastrointestinal: Reports: No Symptoms - Patient Data Vitals - Most Recent: Last Vital Signs Temp 98.6 F 02/28/21 05:30 Pulse 78 02/28/21 08:18 Resp 16 02/28/21 05:30 BP 139/49 L 02/28/21 08:18 Pulse Ox 93 L 02/28/21 05:30 Weight - Most Recent: 107.7 kg I&O - Last 24 Hours: Intake & Output 02/27/21 02/28/21 02/28/21 22:59 06:59 14:59 Intake Total 229 Output Total 200 Balance 29 Lab Results Last 24 Hours: Laboratory Results - last 24 hr 02/27/21 02/27/21 02/27/21 Range/Units 10:32 10:32 17:00 WBC 11.5 H (3.0-10.3) x10-3/uL RBC 4.23 (3.60-5.20) x10(6)uL Hgb 12.3 (11.4-15.5) g/dL Hct 38.6 (34.2-48.2) % MCV 91.3 (76.7-100.5) fL MCH 29.0 (23.9-33.9) pg MCHC 31.8 L (31.9-34.8) g/dL RDW 13.2 (12.3-16.5) % Plt Count 287 (151-488) x10(3)uL MPV 8.0 (7.1-12.4) fL Neut % (Auto) 79.7 H (30.8-76.2) % Lymph % (Auto) 11.8 L (18.4-52.1) % [place] % (Auto) 7.0 (4.4-15.7) % Eos % (Auto) 0.9 (0.6-8.1) % Baso % (Auto) 0.6 (0.2-1.5) % Neut # (Auto) 9.2 H (1.5-6.3) x10-3/uL Lymph # (Auto) 1.4 (1.0-4.4) x10-3/uL [place] # (Auto) 0.8 (0.3-1.0) x10-3/uL Eos # (Auto) 0.1 (0.0-0.8) x10-3/uL Baso # (Auto) 0.1 (0.0-0.1) x10-3/uL Sodium 141 (135-145) mmol/L Potassium 3.8 (3.5-5.3) mmol/L Chloride 104 (100-110) mmol/L Carbon Dioxide 25 (21-32) mmol/L BUN 47 H (7-18) mg/dL Creatinine 2.0 H* (0.55-1.02) mg/dL Est Cr Clr Drug Dosing TNP Estimated GFR (MDRD) 24 L (>60) BUN/Creatinine Ratio 23.5 H (9-20) Glucose 219 H D (80-116) mg/dL Calcium 9.4 (8.6-10.2) mg/dL Total Bilirubin 0.3 (0.1-1.3) mg/dL AST 17 D (5-25) IU/L ALT 20 D (12-36) U/L Alkaline Phosphatase 142 H (56-112) IU/L Total Protein 7.9 (6.0-8.0) g/dL Albumin 3.6 (3.2-4.6) g/dL Globulin 4.3 g/dL Albumin/Globulin Ratio 0.8 Urine Color (YELLOW) Urine Appearance (CLEAR) Urine pH (5.0-6.5) Ur Specific [place] (1.010-1.025) Urine Protein (NEGATIVE) mg/dL Urine Glucose (UA) (NORMAL) mg/dL Urine Ketones (NEGATIVE) mg/dL Urine Occult Blood (NEGATIVE) Urine Nitrite (NEGATIVE) Urine Bilirubin (NEGATIVE) Urine Urobilinogen (NEGATIVE) mg/dL Ur Leukocyte Esterase (NEGATIVE) Urine RBC (0-5) Urine WBC (0-5) Ur Squamous Epith Cells (NS,R,O) Urine Bacteria (NS) SARS-CoV-2 RNA (DEVORAH) Negative (NEGATIVE) 01/03/2002/28/21 02/28/21 Range/Units 21:00 06:30 06:30 WBC 10.2 (3.0-10.3) x10-3/uL RBC 3.92 (3.60-5.20) x10(6)uL Hgb 11.8 (11.4-15.5) g/dL Hct 36.1 (34.2-48.2) % MCV 92.3 (76.7-100.5) fL MCH 30.1 (23.9-33.9) pg MCHC 32.7 (31.9-34.8) g/dL RDW 13.2 (12.3-16.5) % Plt Count 289 (151-488) x10(3)uL MPV 8.3 (7.1-12.4) fL Neut % (Auto) 66.3 (30.8-76.2) % Lymph % (Auto) 22.3 (18.4-52.1) % [place] % (Auto) 8.8 (4.4-15.7) % Eos % (Auto) 2.2 (0.6-8.1) % Baso % (Auto) 0.4 (0.2-1.5) % Neut # (Auto) 6.8 H (1.5-6.3) x10-3/uL Lymph # (Auto) 2.3 (1.0-4.4) x10-3/uL [place] # (Auto) 0.9 (0.3-1.0) x10-3/uL Eos # (Auto) 0.2 (0.0-0.8) x10-3/uL Baso # (Auto) 0.0 (0.0-0.1) x10-3/uL Sodium 142 (135-145) mmol/L Potassium 3.8 (3.5-5.3) mmol/L Chloride 106 (100-110) mmol/L Carbon Dioxide 24 (21-32) mmol/L BUN 57 H D (7-18) mg/dL Creatinine 3.3 H* (0.55-1.02) mg/dL Est Cr Clr Drug Dosing 12.13 Estimated GFR (MDRD) 14 L (>60) BUN/Creatinine Ratio 17.3 (9-20) Glucose 157 H (80-116) mg/dL Calcium 9.3 (8.6-10.2) mg/dL Total Bilirubin (0.1-1.3) mg/dL AST (5-25) IU/L ALT (12-36) U/L Alkaline Phosphatase (56-112) IU/L Total Protein (6.0-8.0) g/dL Albumin (3.2-4.6) g/dL Globulin g/dL Albumin/Globulin Ratio Urine Color Yellow (YELLOW) Urine Appearance Slightly cloudy (CLEAR) Urine pH 5.0 (5.0-6.5) Ur Specific [place] 1.020 (1.010-1.025) Urine Protein Negative (NEGATIVE) mg/dL Urine Glucose (UA) Normal (NORMAL) mg/dL Urine Ketones Negative (NEGATIVE) mg/dL Urine Occult Blood Negative (NEGATIVE) Urine Nitrite Negative (NEGATIVE) Urine Bilirubin Negative (NEGATIVE) Urine Urobilinogen Normal (NEGATIVE) mg/dL Ur Leukocyte Esterase Small H (NEGATIVE) Urine RBC 0-5 (0-5) Urine WBC 0-5 (0-5) Ur Squamous Epith Cells Moderate H (NS,R,O) Urine Bacteria Few H (NS) SARS-CoV-2 RNA (DEVORAH) (NEGATIVE) Med Orders - Current: Current Medications Acetaminophen/Codeine Phosphate (Acetaminophen/Codeine 300-30 Mg Tab) 1 tab PO BEDTIME [facility] Last Admin: 02/27/21 20:39 Dose: 1 tab Documented by: Acetaminophen/Codeine Phosphate (Acetaminophen/Codeine 300-30 Mg Tab) 1 tab PO Q6H PRN PRN Reason: Pain Hydrocodone Bitart/Acetaminophen (Acetaminophen/Hydrocodone 325-5 Mg Tab) 1 tab PO Q4H PRN PRN Reason: Pain Amlodipine Besylate (Amlodipine 5 Mg TabOwn Med) 5 mg PO DAILY [facility] Last Admin: 02/28/21 08:18 Dose: 5 mg Documented by: Cephalexin (Cephalexin 250 Mg CapOwn Med) 250 mg PO TID [facility] Stop: 02/28/21 21:01 Last Admin: 02/28/21 08:17 Dose: 250 mg Documented by: Enoxaparin Sodium (Enoxaparin 30 Mg/0.3 Ml Syringe) 30 mg SUBCUT Q24H [facility] Last Admin: 02/27/21 16:44 Dose: 30 mg Documented by: Glipizide (Glipizide 10 Mg Tab.ErOwn Med) 10 mg PO DAILY [facility] Last Admin: 02/28/21 08:16 Dose: 10 mg Documented by: Glipizide (Glipizide 5 Mg Tab.ErOwn Med) 5 mg PO DAILY [facility] Last Admin: 02/28/21 08:16 Dose: 5 mg Documented by: Sodium Chloride (Normal Saline) 1,000 mls @ 999 mls/hr IV ASDIRECTED [facility] Levothyroxine Sodium (Levothyroxine 88 Mcg TabOwn Med) 88 mcg PO ACBREAKFAST [facility] Last Admin: 02/28/21 06:20 Dose: 88 mcg Documented by: Loperamide HCl (Loperamide 2 Mg Cap) 2 mg PO ASDIRECTED [facility] Metoprolol Succinate (Metoprolol Succinate 50 Mg Tab.ErOwn Med) 50 mg PO DAILY [facility] Last Admin: 02/28/21 08:18 Dose: 50 mg Documented by: Morphine Sulfate (Morphine 2 Mg/Ml Syringe) 2 mg IVPUSH Q6H PRN PRN Reason: Pain Dextrin [Fiber] 350 (Gm PowderOwn Med) 1 scoop PO DAILY [facility] Last Admin: 02/28/21 08:15 Dose: 1 scoop Documented by: Hydroxyzine Pamoate 25 Mg CapsuleOwn Med 25 mg PO BEDTIME [facility] Last Admin: 02/27/21 20:41 Dose: 25 mg Documented by: Ondansetron HCl (Ondansetron 4 Mg/2 Ml Sdv) 4 mg IV Q4H PRN PRN Reason: Nausea/Vomiting Pregabalin (Pregabalin 25 Mg Cap) 25 mg PO BID [facility] Last Admin: 02/28/21 08:22 Dose: 25 mg Documented by: Senna/Docusate Sodium (Docusate Sodium/Sennosides 50-8.6 Mg Tab) 1 tab PO BID PRN PRN Reason: Constipation Sodium Chloride (Sodium Chloride 0.9% 10 Ml Syringe) 10 ml FLUSH ASDIRECTED PRN PRN Reason: Keep Vein Open Triamterene/Hydrochlorothiazide (Hydrochlorothiazide/Triamterene 25-37.5 TabOwn Med) 1 each PO DAILY [facility] Last Admin: 02/28/21 08:17 Dose: 1 each Documented by: Discontinued Medications Hydrocodone Bitart/Acetaminophen (Acetaminophen/Hydrocodone 325-5 Mg Tab) 2 tab PO NOW STA Stop: 02/27/21 10:12 Last Admin: 02/27/21 11:15 Dose: 2 tab Documented by: Albuterol/Ipratropium (Albuterol/Ipratropium 3.0-0.5 Mg/3 Ml Neb Soln) 3 ml NEB NOW STA Stop: 02/27/21 09:58 Last Admin: 02/27/21 14:59 Dose: Not Given Documented by: Enoxaparin Sodium (Enoxaparin 40 Mg/0.4 Ml Syringe) 40 mg SUBCUT Q24H [facility] Hydromorphone HCl (Hydromorphone 2 Mg/Ml Sdv) 1 mg IVPUSH NOW STA Stop: 02/27/21 13:04 Last Admin: 02/27/21 13:07 Dose: 1 mg Documented by: Sodium Chloride (Normal Saline) 1,000 mls @ 999 mls/hr IV ASDIRECTED [facility] Last Admin: 02/27/21 11:15 Dose: 999 mls/hr Documented by: Sodium Chloride (Normal Saline) 1,000 mls @ 125 mls/hr IV ASDIRECTED [facility] Last Admin: 02/27/21 16:45 Dose: 125 mls/hr Documented by: Ketorolac Tromethamine (Ketorolac 30 Mg/Ml Sdv) 30 mg IVPUSH NOW STA Stop: 02/27/21 09:58 Last Admin: 02/27/21 14:58 Dose: 30 mg Documented by: Methylprednisolone Sodium Succinate (Methylprednisolone Sodium Succinate 125 Mg/2 Ml Sdv) 125 mg IVPUSH NOW STA Stop: 02/27/21 09:58 Last Admin: 02/27/21 15:00 Dose: Not Given Documented by: Morphine Sulfate (Morphine 2 Mg/Ml Syringe) 2 mg IVPUSH NOW STA Stop: 02/27/21 12:15 Last Admin: 02/27/21 14:59 Dose: Not Given Documented by: Morphine Sulfate (Morphine 2 Mg/Ml Syringe) 2 mg IVPUSH Q2H [facility] Last Admin: 02/27/21 15:55 Dose: Not Given Documented by: Pregabalin (Pregabalin 25 Mg CapOwn Med) 25 mg PO BID [facility] Last Admin: 02/27/21 20:39 Dose: 25 mg Documented by: - Exam General: Alert, Oriented Neck: Supple Lungs: Clear to Auscultation Cardiovascular: Regular Rate Back Exam: Normal Inspection Extremities: Pedal Edema Neurological: No New Focal Deficit - Patient Data Lab Results Last 24 hrs: Laboratory Results - last 24 hr 02/27/21 02/27/21 02/27/21 Range/Units 10:32 10:32 17:00 WBC 11.5 H (3.0-10.3) x10-3/uL RBC 4.23 (3.60-5.20) x10(6)uL Hgb 12.3 (11.4-15.5) g/dL Hct 38.6 (34.2-48.2) % MCV 91.3 (76.7-100.5) fL MCH 29.0 (23.9-33.9) pg MCHC 31.8 L (31.9-34.8) g/dL RDW 13.2 (12.3-16.5) % Plt Count 287 (151-488) x10(3)uL MPV 8.0 (7.1-12.4) fL Neut % (Auto) 79.7 H (30.8-76.2) % Lymph % (Auto) 11.8 L (18.4-52.1) % [place] % (Auto) 7.0 (4.4-15.7) % Eos % (Auto) 0.9 (0.6-8.1) % Baso % (Auto) 0.6 (0.2-1.5) % Neut # (Auto) 9.2 H (1.5-6.3) x10-3/uL Lymph # (Auto) 1.4 (1.0-4.4) x10-3/uL [place] # (Auto) 0.8 (0.3-1.0) x10-3/uL Eos # (Auto) 0.1 (0.0-0.8) x10-3/uL Baso # (Auto) 0.1 (0.0-0.1) x10-3/uL Sodium 141 (135-145) mmol/L Potassium 3.8 (3.5-5.3) mmol/L Chloride 104 (100-110) mmol/L Carbon Dioxide 25 (21-32) mmol/L BUN 47 H (7-18) mg/dL Creatinine 2.0 H* (0.55-1.02) mg/dL Est Cr Clr Drug Dosing TNP Estimated GFR (MDRD) 24 L (>60) BUN/Creatinine Ratio 23.5 H (9-20) Glucose 219 H D (80-116) mg/dL Calcium 9.4 (8.6-10.2) mg/dL Total Bilirubin 0.3 (0.1-1.3) mg/dL AST 17 D (5-25) IU/L ALT 20 D (12-36) U/L Alkaline Phosphatase 142 H (56-112) IU/L Total Protein 7.9 (6.0-8.0) g/dL Albumin 3.6 (3.2-4.6) g/dL Globulin 4.3 g/dL Albumin/Globulin Ratio 0.8 Urine Color (YELLOW) Urine Appearance (CLEAR) Urine pH (5.0-6.5) Ur Specific [place] (1.010-1.025) Urine Protein (NEGATIVE) mg/dL Urine Glucose (UA) (NORMAL) mg/dL Urine Ketones (NEGATIVE) mg/dL Urine Occult Blood (NEGATIVE) Urine Nitrite (NEGATIVE) Urine Bilirubin (NEGATIVE) Urine Urobilinogen (NEGATIVE) mg/dL Ur Leukocyte Esterase (NEGATIVE) Urine RBC (0-5) Urine WBC (0-5) Ur Squamous Epith Cells (NS,R,O) Urine Bacteria (NS) SARS-CoV-2 RNA (DEVORAH) Negative (NEGATIVE) 02/27/21 02/28/21 02/28/21 Range/Units 21:00 06:30 06:30 WBC 10.2 (3.0-10.3) x10-3/uL RBC 3.92 (3.60-5.20) x10(6)uL Hgb 11.8 (11.4-15.5) g/dL Hct 36.1 (34.2-48.2) % MCV 92.3 (76.7-100.5) fL MCH 30.1 (23.9-33.9) pg MCHC 32.7 (31.9-34.8) g/dL RDW 13.2 (12.3-16.5) % Plt Count 289 (151-488) x10(3)uL MPV 8.3 (7.1-12.4) fL Neut % (Auto) 66.3 (30.8-76.2) % Lymph % (Auto) 22.3 (18.4-52.1) % [place] % (Auto) 8.8 (4.4-15.7) % Eos % (Auto) 2.2 (0.6-8.1) % Baso % (Auto) 0.4 (0.2-1.5) % Neut # (Auto) 6.8 H (1.5-6.3) x10-3/uL Lymph # (Auto) 2.3 (1.0-4.4) x10-3/uL [place] # (Auto) 0.9 (0.3-1.0) x10-3/uL Eos # (Auto) 0.2 (0.0-0.8) x10-3/uL Baso # (Auto) 0.0 (0.0-0.1) x10-3/uL Sodium 142 (135-145) mmol/L Potassium 3.8 (3.5-5.3) mmol/L Chloride 106 (100-110) mmol/L Carbon Dioxide 24 (21-32) mmol/L BUN 57 H D (7-18) mg/dL Creatinine 3.3 H* (0.55-1.02) mg/dL Est Cr Clr Drug Dosing 12.13 Estimated GFR (MDRD) 14 L (>60) BUN/Creatinine Ratio 17.3 (9-20) Glucose 157 H (80-116) mg/dL Calcium 9.3 (8.6-10.2) mg/dL Total Bilirubin (0.1-1.3) mg/dL AST (5-25) IU/L ALT (12-36) U/L Alkaline Phosphatase (56-112) IU/L Total Protein (6.0-8.0) g/dL Albumin (3.2-4.6) g/dL Globulin g/dL Albumin/Globulin Ratio Urine Color Yellow (YELLOW) Urine Appearance Slightly cloudy (CLEAR) Urine pH 5.0 (5.0-6.5) Ur Specific [place] 1.020 (1.010-1.025) Urine Protein Negative (NEGATIVE) mg/dL Urine Glucose (UA) Normal (NORMAL) mg/dL Urine Ketones Negative (NEGATIVE) mg/dL Urine Occult Blood Negative (NEGATIVE) Urine Nitrite Negative (NEGATIVE) Urine Bilirubin Negative (NEGATIVE) Urine Urobilinogen Normal (NEGATIVE) mg/dL Ur Leukocyte Esterase Small H (NEGATIVE) Urine RBC 0-5 (0-5) Urine WBC 0-5 (0-5) Ur Squamous Epith Cells Moderate H (NS,R,O) Urine Bacteria Few H (NS) SARS-CoV-2 RNA (DEVORAH) (NEGATIVE) Result Diagrams: 02/28/21 06:30 02/28/21 06:30 Sepsis Event Note - Evaluation Sepsis Screening Result: No Definite Risk - Focused Exam Vital Signs: Vital Signs Temp Pulse Pulse Resp BP BP Pulse Ox 02/28/21 08:18 78 139/49 L 02/28/21 05:30 98.6 F 73 16 124/71 93 L 02/28/21 00:00 97.7 F 64 16 109/59 L 93 L - Problem List & Annotations (1) Inability to walk SNOMED Code(s): 200142779 Code(s): R26.2 - DIFFICULTY IN WALKING, NOT ELSEWHERE CLASSIFIED Status: Acute Current Visit: Yes (2) Peripheral neuropathy SNOMED Code(s): 040637740 Code(s): G62.9 - POLYNEUROPATHY, UNSPECIFIED Status: Acute Current Visit: Yes (3) Diabetes type 2, controlled SNOMED Code(s): 07498163, 004818175 Code(s): E11.9 - TYPE 2 DIABETES MELLITUS WITHOUT COMPLICATIONS Status: Acute Current Visit: Yes Qualifiers: Diabetes mellitus state wildlife officer insulin use: with state wildlife officer use Proliferative retinopathy type: stable (4) Obesity SNOMED Code(s): 971658067, 022194966 Code(s): E66.9 - OBESITY, UNSPECIFIED Status: Acute Current Visit: Yes Qualifiers: Obesity type: unspecified obesity type (5) HTN (hypertension) SNOMED Code(s): 37932675 Code(s): I10 - ESSENTIAL (PRIMARY) HYPERTENSION Status: Acute Current Visit: Yes Qualifiers: Hypertension type: primary hypertension Qualified Code(s): I10 - Essential (primary) hypertension (6) MDD (major depressive disorder) SNOMED Code(s): 371601117 Code(s): F32.9 - MAJOR DEPRESSIVE DISORDER, SINGLE EPISODE, UNSPECIFIED Status: Acute Current Visit: Yes Qualifiers: Major depression recurrence: recurrent (7) Hypothyroidism SNOMED Code(s): 67920171 Code(s): E03.9 - HYPOTHYROIDISM, UNSPECIFIED Status: Acute Current Visit: Yes (8) Knee pain SNOMED Code(s): 7302333199 Code(s): M25.569 - PAIN IN UNSPECIFIED KNEE Status: Acute Current Visit: Yes Qualifiers: Chronicity: acute - Problem List Review Problem List Initiated/Reviewed/Updated: Yes - My Orders Last 24 Hours: My Active Orders 02/27/21 Dinner Consistent Carbohydrate Diet [DIET] 02/27/21 17:33 Acetaminophen/Codeine [Tylenol with Codeine No.3 300MG/30MG] 1 tab PO Q6H PRN 02/27/21 17:34 Morphine 2 mg IVPUSH Q6H PRN 02/27/21 17:35 Resuscitation Status Routine 02/27/21 17:45 Loperamide [Imodium] 2 mg PO ASDIRECTED 02/27/21 21:00 Acetaminophen/Codeine [Tylenol with Codeine No.3 300MG/30MG] 1 tab PO BEDTIME Pregabalin [Lyrica] 25 mg PO BID cephALEXin [Keflex] 250 mg PO TID hydrOXYzine pamoate [Hydroxyzine Pamoate] 25 mg PO BEDTIME 02/28/21 07:30 Levothyroxine [Synthroid] 88 mcg PO ACBREAKFAST 02/28/21 09:00 Dextrin [Fiber] 1 scoop PO DAILY HCTZ/Triamterene [Maxzide 25-37.5 MG] 1 each PO DAILY Metoprolol Succinate [Toprol XL] 50 mg PO DAILY amLODIPine [Norvasc] 5 mg PO DAILY glipiZIDE [Glucotrol XL] 10 mg PO DAILY glipiZIDE [Glucotrol XL] 5 mg PO DAILY 02/28/21 09:06 OT Evaluation and Treatment [CONS] Routine PT Evaluation and Treatment [CONS] Routine 02/28/21 09:15 Sodium Chloride 0.9% [Normal Saline] 1,000 ml IV ASDIRECTED 03/01/21 05:11 BASIC METABOLIC PANEL,BMP [CHEM] AM - Plan Plan:: Her creatinine has gone up to 3.3. I'll give her 1 L bolus fluid, and repeat labs in the morning. I've also recommended a knee x-ray of the right, and consulted physical therapy. Will probably be able to home tomorrow.
[2021-02-28] MEDS ORDERED: Sodium Chloride 0.9% 1,000 ML IV SCH (09:15)
[2021-02-28] MEDS: Enoxaparin 30 MG/0.3 ML Syringe SUBCUT SCH (16:06)
[2021-02-28] MEDS: Acetaminophen/Codeine 300-30 MG Tab PO SCH (21:06)
[2021-02-28] MEDS: HYDROXYZINE PAMOATE 25 MG PO SCH (21:08)
--- NOTE | 2021-02-28 23:44 | PCM.SN.2 ---
- Free Text/Narrative Note: c/o CP PEEWEE Adair asked me to see pt for new c/o CP pt admitted yesterday with peripheral neuropathy of feet, too painful to walk, h/o peripheral neuropathy has had frequent CP apparently, had CP tonight PE with 1-2+ tender of left anterior chest wall, winces to mild palp on left but not right, no cough/sob also with c/o b/l knee pain BMI 40, uses a walker at home EKG at 21:39 with SR, rate 90, LAD, PRWP with late transition, no comparison, no acute/ischemic ST changes trop tonight 6.7 ASSESS: left chest wall pain c/w costochondritis possible prior h/o MS per pt (but not chart) EKG with nonspecific changes including PRWP although this is most likely c/w body habitus PLAN: continue current meds, pt declined additional meds for chest pain, declined heating pad, already taking hydroxyzine for sleep
[2021-03-01] MEDS: Levothyroxine 88 MCG Tab**OWN MED PO SCH (06:45)
[2021-03-01] MEDS: GLIPIZIDE 5 MG PO SCH (09:18)
[2021-03-01] MEDS: DEXTRIN PO SCH (09:18)
[2021-03-01] MEDS: Pregabalin 25 MG Cap PO SCH ×2 (09:18→21:20)
[2021-03-01] MEDS: GLIPIZIDE 10 MG PO SCH (09:18)
[2021-03-01] MEDS: amLODIPine 5 MG Tab**OWN MED PO SCH (09:19)
[2021-03-01] MEDS: Metoprolol Succinate 50 MG Tab.ER**OWN MED PO SCH (09:19)
[2021-03-01] MEDS: HYDROCHLOROTHIAZIDE PO SCH (09:20)
[2021-03-01] MEDS: TRIAMTERENE PO SCH (09:20)
--- NOTE | 2021-03-01 09:25 | PCM.PN ---
- General Info Date of Service: 03/01/21 Subjective Update: He is a 80-year-old female, was admitted for pain in the legs. last night had chest pain.This morning she has pain in the right knee, along with bilateral feet pain,denies any back pain. Functional Status: Reports: Pain Controlled - Patient Data Vitals - Most Recent: Last Vital Signs Temp 98.1 F 03/01/21 05:40 Pulse 90 03/01/21 09:19 Resp 14 03/01/21 05:40 BP 153/71 H 03/01/21 09:19 Pulse Ox 92 L 03/01/21 05:40 Weight - Most Recent: 108.635 kg I&O - Last 24 Hours: Intake & Output 02/28/21 03/01/21 03/01/21 22:59 06:59 14:59 Intake Total 50 Output Total 600 200 Balance -550 -200 Lab Results Last 24 Hours: Laboratory Results - last 24 hr 02/28/21 03/01/21 Range/Units 22:48 06:25 Sodium 140 (135-145) mmol/L Potassium 3.8 (3.5-5.3) mmol/L Chloride 105 (100-110) mmol/L Carbon Dioxide 22 (21-32) mmol/L BUN 55 H (7-18) mg/dL Creatinine 2.6 H* (0.55-1.02) mg/dL Est Cr Clr Drug Dosing 15.40 mL/min Estimated GFR (MDRD) 18 L (>60) BUN/Creatinine Ratio 21.2 H (9-20) Glucose 142 H (80-116) mg/dL Calcium 9.0 (8.6-10.2) mg/dL Troponin I 6.7 (4.0-60.3) pg/mL Med Orders - Current: Current Medications Acetaminophen/Codeine Phosphate (Acetaminophen/Codeine 300-30 Mg Tab) 1 tab PO BEDTIME CORBIN Last Admin: 02/28/21 21:06 Dose: 1 tab Documented by: Acetaminophen/Codeine Phosphate (Acetaminophen/Codeine 300-30 Mg Tab) 1 tab PO Q6H PRN PRN Reason: Pain Hydrocodone Bitart/Acetaminophen (Acetaminophen/Hydrocodone 325-5 Mg Tab) 1 tab PO Q4H PRN PRN Reason: Pain Amlodipine Besylate (Amlodipine 5 Mg TabOwn Med) 5 mg PO DAILY [facility] Last Admin: 03/01/21 09:19 Dose: 5 mg Documented by: Enoxaparin Sodium (Enoxaparin 30 Mg/0.3 Ml Syringe) 30 mg SUBCUT Q24H [facility] Last Admin: 02/28/21 16:06 Dose: 30 mg Documented by: Glipizide (Glipizide 10 Mg Tab.ErOwn Med) 10 mg PO DAILY [facility] Last Admin: 03/01/21 09:18 Dose: 10 mg Documented by: Glipizide (Glipizide 5 Mg Tab.ErOwn Med) 5 mg PO DAILY [facility] Last Admin: 03/01/21 09:18 Dose: 5 mg Documented by: Sodium Chloride (Normal Saline) 1,000 mls @ 999 mls/hr IV ASDIRECTED [facility] Last Admin: 02/28/21 12:03 Dose: 999 mls/hr Documented by: Levothyroxine Sodium (Levothyroxine 88 Mcg TabOwn Med) 88 mcg PO ACBREAKFAST [facility] Last Admin: 03/01/21 06:45 Dose: 88 mcg Documented by: Loperamide HCl (Loperamide 2 Mg Cap) 2 mg PO ASDIRECTED [facility] Metoprolol Succinate (Metoprolol Succinate 50 Mg Tab.ErOwn Med) 50 mg PO DAILY [facility] Last Admin: 03/01/21 09:19 Dose: 50 mg Documented by: Morphine Sulfate (Morphine 2 Mg/Ml Syringe) 2 mg IVPUSH Q6H PRN PRN Reason: Pain Dextrin [Fiber] 350 (Gm PowderOwn Med) 1 scoop PO DAILY [facility] Last Admin: 03/01/21 09:18 Dose: 1 scoop Documented by: Hydroxyzine Pamoate 25 Mg CapsuleOwn Med 25 mg PO BEDTIME [facility] Last Admin: 02/28/21 21:08 Dose: 25 mg Documented by: Ondansetron HCl (Ondansetron 4 Mg/2 Ml Sdv) 4 mg IV Q4H PRN PRN Reason: Nausea/Vomiting Pregabalin (Pregabalin 25 Mg Cap) 25 mg PO BID [facility] Last Admin: 03/01/21 09:18 Dose: 25 mg Documented by: Senna/Docusate Sodium (Docusate Sodium/Sennosides 50-8.6 Mg Tab) 1 tab PO BID PRN PRN Reason: Constipation Sodium Chloride (Sodium Chloride 0.9% 10 Ml Syringe) 10 ml FLUSH ASDIRECTED PRN PRN Reason: Keep Vein Open Last Admin: 02/28/21 12:03 Dose: 10 ml Documented by: Triamterene/Hydrochlorothiazide (Hydrochlorothiazide/Triamterene 25-37.5 TabOwn Med) 1 each PO DAILY [facility] Last Admin: 03/01/21 09:20 Dose: 1 each Documented by: Discontinued Medications Hydrocodone Bitart/Acetaminophen (Acetaminophen/Hydrocodone 325-5 Mg Tab) 2 tab PO NOW STA Stop: 02/27/21 10:12 Last Admin: 02/27/21 11:15 Dose: 2 tab Documented by: Albuterol/Ipratropium (Albuterol/Ipratropium 3.0-0.5 Mg/3 Ml Neb Soln) 3 ml NEB NOW STA Stop: 02/27/21 09:58 Last Admin: 02/27/21 14:59 Dose: Not Given Documented by: Cephalexin (Cephalexin 250 Mg CapOwn Med) 250 mg PO TID [facility] Stop: 02/28/21 21:01 Last Admin: 02/28/21 21:08 Dose: 250 mg Documented by: Enoxaparin Sodium (Enoxaparin 40 Mg/0.4 Ml Syringe) 40 mg SUBCUT Q24H [facility] Hydromorphone HCl (Hydromorphone 2 Mg/Ml Sdv) 1 mg IVPUSH NOW STA Stop: 02/27/21 13:04 Last Admin: 02/27/21 13:07 Dose: 1 mg Documented by: Sodium Chloride (Normal Saline) 1,000 mls @ 999 mls/hr IV ASDIRECTED [facility] Last Admin: 02/27/21 11:15 Dose: 999 mls/hr Documented by: Sodium Chloride (Normal Saline) 1,000 mls @ 125 mls/hr IV ASDIRECTED [facility] Last Admin: 02/27/21 16:45 Dose: 125 mls/hr Documented by: Ketorolac Tromethamine (Ketorolac 30 Mg/Ml Sdv) 30 mg IVPUSH NOW STA Stop: 02/27/21 09:58 Last Admin: 02/27/21 14:58 Dose: 30 mg Documented by: Methylprednisolone Sodium Succinate (Methylprednisolone Sodium Succinate 125 Mg/2 Ml Sdv) 125 mg IVPUSH NOW STA Stop: 02/27/21 09:58 Last Admin: 02/27/21 15:00 Dose: Not Given Documented by: Morphine Sulfate (Morphine 2 Mg/Ml Syringe) 2 mg IVPUSH NOW STA Stop: 02/27/21 12:15 Last Admin: 02/27/21 14:59 Dose: Not Given Documented by: Morphine Sulfate (Morphine 2 Mg/Ml Syringe) 2 mg IVPUSH Q2H [facility] Last Admin: 02/27/21 15:55 Dose: Not Given Documented by: Pregabalin (Pregabalin 25 Mg CapOwn Med) 25 mg PO BID [facility] Last Admin: 02/27/21 20:39 Dose: 25 mg Documented by: - Exam General: Alert Neck: Supple Lungs: Clear to Auscultation Back Exam: Normal Inspection Extremities: Normal Inspection Skin: Warm Neurological: No New Focal Deficit - Patient Data Lab Results Last 24 hrs: Laboratory Results - last 24 hr 02/28/21 03/01/21 Range/Units 22:48 06:25 Sodium 140 (135-145) mmol/L Potassium 3.8 (3.5-5.3) mmol/L Chloride 105 (100-110) mmol/L Carbon Dioxide 22 (21-32) mmol/L BUN 55 H (7-18) mg/dL Creatinine 2.6 H* (0.55-1.02) mg/dL Est Cr Clr Drug Dosing 15.40 mL/min Estimated GFR (MDRD) 18 L (>60) BUN/Creatinine Ratio 21.2 H (9-20) Glucose 142 H (80-116) mg/dL Calcium 9.0 (8.6-10.2) mg/dL Troponin I 6.7 (4.0-60.3) pg/mL Result Diagrams: 02/28/21 06:30 03/01/21 06:25 Sepsis Event Note - Evaluation Sepsis Screening Result: No Definite Risk - Focused Exam Vital Signs: Vital Signs Temp Pulse Pulse Resp BP BP Pulse Ox 03/01/21 09:19 90 153/71 H 03/01/21 05:40 98.1 F 88 14 134/69 92 L 03/01/21 00:15 98.5 F 84 16 125/68 92 L - Problem List & Annotations (1) Inability to walk SNOMED Code(s): 723125874 Code(s): R26.2 - DIFFICULTY IN WALKING, NOT ELSEWHERE CLASSIFIED Status: Acute Current Visit: Yes (2) Peripheral neuropathy SNOMED Code(s): 811053150 Code(s): G62.9 - POLYNEUROPATHY, UNSPECIFIED Status: Acute Current Visit: Yes (3) Diabetes type 2, controlled SNOMED Code(s): 54185635, [id number] Code(s): E11.9 - TYPE 2 DIABETES MELLITUS WITHOUT COMPLICATIONS Status: Acute Current Visit: Yes Qualifiers: Diabetes mellitus director long term care insulin use: with director long term care use Proliferative retinopathy type: stable (4) Obesity SNOMED Code(s): 244079097, 274843613 Code(s): E66.9 - OBESITY, UNSPECIFIED Status: Acute Current Visit: Yes Qualifiers: Obesity type: unspecified obesity type (5) HTN (hypertension) SNOMED Code(s): 25364095 Code(s): I10 - ESSENTIAL (PRIMARY) HYPERTENSION Status: Acute Current Visit: Yes Qualifiers: Hypertension type: primary hypertension Qualified Code(s): I10 - Essential (primary) hypertension (6) MDD (major depressive disorder) SNOMED Code(s): 368947490 Code(s): F32.9 - MAJOR DEPRESSIVE DISORDER, SINGLE EPISODE, UNSPECIFIED Status: Acute Current Visit: Yes Qualifiers: Major depression recurrence: recurrent (7) Hypothyroidism SNOMED Code(s): 51042641 Code(s): E03.9 - HYPOTHYROIDISM, UNSPECIFIED Status: Acute Current Visit: Yes (8) Knee pain SNOMED Code(s): 5327863651 Code(s): M25.569 - PAIN IN UNSPECIFIED KNEE Status: Acute Current Visit: Yes Qualifiers: Chronicity: acute - Problem List Review Problem List Initiated/Reviewed/Updated: Yes - My Orders Last 24 Hours: My Active Orders 02/28/21 09:00 Dextrin [Fiber] 1 scoop PO DAILY HCTZ/Triamterene [Maxzide 25-37.5 MG] 1 each PO DAILY Metoprolol Succinate [Toprol XL] 50 mg PO DAILY amLODIPine [Norvasc] 5 mg PO DAILY glipiZIDE [Glucotrol XL] 10 mg PO DAILY glipiZIDE [Glucotrol XL] 5 mg PO DAILY 02/28/21 09:06 OT Evaluation and Treatment [CONS] Routine PT Evaluation and Treatment [CONS] Routine 02/28/21 09:09 Knee 1V or 2V Rt [CR] Routine Knee Standing AP Bi [CR] Routine 02/28/21 09:15 Sodium Chloride 0.9% [Normal Saline] 1,000 ml IV ASDIRECTED - Plan Plan:: Her creatinine has improved. Have PT/OT see her
[2021-03-01] MEDS: Enoxaparin 30 MG/0.3 ML Syringe SUBCUT SCH (16:53)
[2021-03-01] MEDS: Morphine 2 MG/ML SYRINGE IVPUSH SCH (17:25)
[2021-03-01] MEDS: HYDROXYZINE PAMOATE 25 MG PO SCH (20:13)
[2021-03-01] MEDS: Acetaminophen/Codeine 300-30 MG Tab PO SCH (20:19)
[2021-03-02] MEDS: Levothyroxine 88 MCG Tab**OWN MED PO SCH (07:06)
[2021-03-02] MEDS: HYDROCHLOROTHIAZIDE PO SCH (09:43)
[2021-03-02] MEDS: GLIPIZIDE 5 MG PO SCH (09:43)
[2021-03-02] MEDS: TRIAMTERENE PO SCH (09:43)
[2021-03-02] MEDS: amLODIPine 5 MG Tab**OWN MED PO SCH (09:44)
[2021-03-02] MEDS: GLIPIZIDE 10 MG PO SCH (09:44)
[2021-03-02] MEDS: Metoprolol Succinate 50 MG Tab.ER**OWN MED PO SCH (09:44)
[2021-03-02] MEDS: DEXTRIN PO SCH (09:45)
[2021-03-02] MEDS: Pregabalin 25 MG Cap PO SCH (09:52)
--- NOTE | 2021-03-02 10:11 | DISCH ---
DISCHARGE DATE: 03/02/2021 REASON FOR ADMISSION: 1. Leg pain. 2. Hypertension. 3. Chronic kidney disease. 4. Type 2 diabetes. 5. Peripheral neuropathy. 6. Difficulty with ambulation. BRIEF HISTORY: A 80-year-old female who has had peripheral neuropathy that is chronic, but the last 2 days before admission, she was unable to move or support herself. She was admitted for pain control and she was found to have also acute- on-chronic kidney injury. She was given fluids. Creatinine improved from 3.3 to 2.6, her baseline is about 1.9. She will be discharged today on home health and physical and occupational therapy. Follow up with Luz Alonso on . I was not able to obtain an ultrasound of the legs, as such I will order a duplex venous ultrasound bilateral for tomorrow morning here on an ambulatory basis. /[id number] REBECCA/ALANNA
== END 2021-03-02 14:00 | disposition home health service (06) ==
LOC: FB.ED 09:49 → FB.MS 15:04
PROVIDERS: ADMIT Family Medicine; ATTEND Family Medicine
DX: E11.42 Type 2 diabetes mellitus with diabetic polyneuropathy (principal); R26.2 Difficulty in walking, not elsewhere classified; E11.22 Type 2 diabetes mellitus with diabetic chronic kidney disease; E66.9 Obesity, unspecified; N18.9 Chronic kidney disease, unspecified; I12.9 Hypertensive chronic kidney disease with stage 1 through stage 4 chronic kidney disease, or unspecified chronic kidney disease; G47.30 Sleep apnea, unspecified; E03.9 Hypothyroidism, unspecified; F32.9 Major depressive disorder, single episode, unspecified; Z79.890 Hormone replacement therapy; Z79.84 Long term (current) use of oral hypoglycemic drugs; Z98.890 Other specified postprocedural states; Z20.822 Contact with and (suspected) exposure to COVID-19
CPT/HCPCS: 36415; 71045; 73560-RT; 73565; 80048; 80053; 81001; 84484; 85025; 93005; 96372; 96374; 96375; 97110-GP; 97116-GP; 97161-GP; 97166-GO; 99285-25; A9270-GY; G0378; J1170; J1650; J1885; J7030; U0002

== ENCOUNTER 2022-08-12 13:24 | Inpatient (IN) | payer MEDICARE ==
[2022-08-12] MEDS ORDERED: Sodium Chloride 0.9% 10 ML Syringe FLUSH PRN ×2 (14:01→17:51)
[2022-08-12] MEDS ORDERED: Potassium Chloride 20 MEQ in Premix Bag 1 BAG IV ONE ×2 (14:02→17:36)
[2022-08-12] MEDS ORDERED: Sodium Chloride 0.9% 1,000 ML IV SCH ×2 (14:15→17:30)
[2022-08-12] MEDS ORDERED: Glucagon,Human Recombinant 1 MG Vial IM PRN ×2 (14:59→17:18)
[2022-08-12] MEDS ORDERED: Insulin Regular, Human 100 Units/ML 3 ML Vial IV ONE ×4 (14:59→22:28)
[2022-08-12] MEDS ORDERED: 50% Dextrose in Water 50 ML Syringe IVPUSH PRN ×2 (14:59→17:18)
[2022-08-12 16:57] LABS: BILIRUBIN,URINE NEGATIVE (NEGATIVE); GLUCOSE,URINE 250 mg/dL (NORMAL); KETONES,URINE NEGATIVE (NEGATIVE); LEUKOCYTE ESTERASE,URINE NEGATIVE (NEGATIVE); NITRITE,URINE NEGATIVE (NEGATIVE); OCCULT BLOOD,URINE NEGATIVE (NEGATIVE); PROTEIN,URINE NEGATIVE (NEGATIVE); UROBILINOGEN,URINE NORMAL (NEGATIVE)
[2022-08-12 16:58] LABS: APPEARANCE,URINE CLEAR (CLEAR); BACTERIA,URINE FEW (NS); COLOR,URINE YELLOW (YELLOW); RBC,URINE 0-5 (0-5); SQUAMOUS EPITHELIAL CELLS,UR OCCASIONAL (NS,R,O); WBC,URINE 0-5 (0-5)
[2022-08-12 17:22] LABS: HEMATOCRIT 42.6 % (34.2-48.2); HEMOGLOBIN 14.2 g/dL (11.4-15.5); MEAN CORPUSCULAR HEMOGLOBIN 30.5 pg (23.9-33.9); MEAN CORPUSCULAR HGB CONC 33.3 g/dL (31.9-34.8); MEAN CORPUSCULAR VOLUME 91.6 fL (76.7-100.5); RED BLOOD CELL COUNT 4.65 x10(6)uL (3.60-5.20); RED CELL DISTRIBUTION WIDTH 14.2 % (12.3-16.5); WHITE BLOOD CELL COUNT,WBC 14.6 x10-3/uL (3.0-10.3)
[2022-08-12 17:29] LABS: BLOOD UREA NITROGEN,BUN 59 mg/dL (7-18); BUN/CREATININE RATIO 25.7 (9-20); CALCIUM 9.8 mg/dL (8.6-10.2); CARBON DIOXIDE,CO2 33 mmol/L (21-32); CHLORIDE,CL 90 mmol/L (100-110); CREATININE 2.3 mg/dL (0.55-1.02); ESTIMATED GFR 21 mL/min (>60); GLUCOSE RANDOM 325 mg/dL (80-116); POTASSIUM,K 2.8 mmol/L (3.5-5.3); SODIUM,NA 135 mmol/L (135-145)
[2022-08-12] MEDS ORDERED: Potassium Chloride 100 ML ONE ×2 (17:41→17:43)
[2022-08-12] MEDS ORDERED: Piperacillin/Tazobactam 4.5 GM in Sodium Chloride 0.9% 100 ML IV ONE (17:51)
[2022-08-12] MEDS ORDERED: Sodium Chloride 0.9% 1,000 ML IV ONE (17:51)
[2022-08-12 18:25] LABS: BASE EXCESS VENOUS,POC 9 mmol/L (-2 - 3+); PCO2 VENOUS,POC 47 mmHg (41-51); PH VENOUS,POC 7.47 pH Units (7.32-7.43)
[2022-08-12] MEDS ORDERED: Acetaminophen/Codeine 300-30 MG Tab PO PRN (20:09)
[2022-08-12] MEDS ORDERED: VANCOmycin 1 GM/200 ML 200 ML ONE (20:12)
[2022-08-12] MEDS ORDERED: VANCOmycin 1 GM/200 ML 1 GM in Premix Bag 1 BAG IV ONE (20:13)
[2022-08-12] MEDS: Gabapentin 100 MG Cap PO SCH (20:32)
[2022-08-12 20:47] LABS: LACTIC ACID 1.5 mmol/L (0.4-2.0)
[2022-08-12 22:25] LABS: BASOPHILS ABSOLUTE AUTO 0.1 x10-3/uL (0.0-0.1); BASOPHILS PERCENT AUTO 0.4 % (0.2-1.5); EOSINOPHILS ABSOLUTE AUTO 0.2 x10-3/uL (0.0-0.8); EOSINOPHILS PERCENT AUTO 1.4 % (0.6-8.1); HEMATOCRIT 38.9 % (34.2-48.2); HEMOGLOBIN 13.1 g/dL (11.4-15.5); LYMPHOCYTES ABSOLUTE AUTO 1.6 x10-3/uL (1.0-4.4); LYMPHOCYTES PERCENT AUTO 12.5 % (18.4-52.1); MEAN CORPUSCULAR HEMOGLOBIN 30.8 pg (23.9-33.9); MEAN CORPUSCULAR HGB CONC 33.7 g/dL (31.9-34.8); MEAN CORPUSCULAR VOLUME 91.5 fL (76.7-100.5); MEAN PLATELET VOLUME 9.2 fL (7.1-12.4); MONOCYTES PERCENT AUTO 7.5 % (4.4-15.7); NEUTROPHILS ABSOLUTE AUTO 10.3 x10-3/uL (1.5-6.3); NEUTROPHILS PERCENT AUTO 78.2 % (30.8-76.2); PLATELET COUNT,PLT 282 x10(3)uL (151-488); RED BLOOD CELL COUNT 4.25 x10(6)uL (3.60-5.20); WHITE BLOOD CELL COUNT,WBC 13.2 x10-3/uL (3.0-10.3)
[2022-08-12 22:30] LABS: A/G RATIO 0.9; ALANINE AMINOTRANSFERASE,ALT 19 U/L (12-36); ALBUMIN 3.5 g/dL (3.2-4.6); ALKALINE PHOSPHATASE 194 IU/L (56-112); ASPARTATE AMNIOTRANSFERASE,AST 20 IU/L (5-25); BILIRUBIN TOTAL 0.5 mg/dL (0.1-1.3); BLOOD UREA NITROGEN,BUN 61 mg/dL (7-18); BUN/CREATININE RATIO 26.5 (9-20); CALCIUM 9.4 mg/dL (8.6-10.2); CARBON DIOXIDE,CO2 32 mmol/L (21-32); CHLORIDE,CL 93 mmol/L (100-110); EST CRCL DRUG DOSING (CG) 16.85 mL/min; ESTIMATED GFR 21 mL/min (>60); GLUCOSE RANDOM 211 mg/dL (80-116); PROTEIN TOTAL,TP 7.4 g/dL (6.0-8.0); SODIUM,NA 137 mmol/L (135-145)
[2022-08-12] MEDS ORDERED: Insulin Glargine,Human Rec. Analog 100 Units/ML 3 ML Pen SUBCUT ONE ×2 (22:33→22:52)
[2022-08-12 22:45] LABS: CREATININE 2.3 mg/dL (0.55-1.02); POTASSIUM,K 2.5 mmol/L (3.5-5.3)
[2022-08-12] MEDS ORDERED: Potassium Chloride 10 MEQ in Premix Bag 1 BAG IV SCH (23:30)
[2022-08-12] MEDS: Potassium Chloride 20 MEQ in Premix Bag 1 BAG IV SCH (23:51)
[2022-08-13 02:25] LABS: BLOOD UREA NITROGEN,BUN 58 mg/dL (7-18); BUN/CREATININE RATIO 27.6 (9-20); CALCIUM 8.9 mg/dL (8.6-10.2); CARBON DIOXIDE,CO2 32 mmol/L (21-32); CHLORIDE,CL 97 mmol/L (100-110); EST CRCL DRUG DOSING (CG) 18.45 mL/min; ESTIMATED GFR 23 mL/min (>60); GLUCOSE RANDOM 133 mg/dL (80-116); SODIUM,NA 138 mmol/L (135-145)
[2022-08-13 02:28] LABS: CREATININE 2.1 mg/dL (0.55-1.02); POTASSIUM,K 2.7 mmol/L (3.5-5.3)
[2022-08-13] MEDS: Potassium Chloride 20 MEQ in Premix Bag 1 BAG IV SCH (02:36)
[2022-08-13] MEDS ORDERED: Dextrose 5% in Water 1,000 ML IV SCH (02:45)
[2022-08-13] MEDS ORDERED: Dextrose 5%-0.45% NaCl 1,000 ML IV SCH (02:52)
[2022-08-13 07:17] LABS: BLOOD UREA NITROGEN,BUN 53 mg/dL (7-18); BUN/CREATININE RATIO 26.5 (9-20); CALCIUM 8.8 mg/dL (8.6-10.2); CARBON DIOXIDE,CO2 32 mmol/L (21-32); CHLORIDE,CL 98 mmol/L (100-110); EST CRCL DRUG DOSING (CG) 19.37 mL/min; ESTIMATED GFR 25 mL/min (>60); GLUCOSE RANDOM 139 mg/dL (80-116); SODIUM,NA 139 mmol/L (135-145)
[2022-08-13 07:18] LABS: POTASSIUM,K 2.6 mmol/L (3.5-5.3)
[2022-08-13] MEDS ORDERED: hydrOXYzine HCl 25 MG Tab PO PRN (08:33)
[2022-08-13] MEDS ORDERED: Acetaminophen/Codeine 300-30 MG Tab PO PRN (08:33)
[2022-08-13] MEDS: amLODIPine 10 MG Tab PO SCH (09:46)
[2022-08-13] MEDS: Aspirin 81 MG Tab.EC PO SCH (09:46)
[2022-08-13] MEDS: Cholecalciferol (Vitamin D3) 25 MCG Tab PO SCH (09:47)
[2022-08-13] MEDS: Metoprolol Succinate 25 MG Tab.ER PO SCH (09:47)
[2022-08-13] MEDS: Allopurinol 300 MG Tab PO SCH (09:47)
[2022-08-13] MEDS: Potassium Chloride 20 MEQ Tab.ER PO SCH ×3 (09:47→20:22)
[2022-08-13] MEDS: Empagliflozin 10 MG Tab PO SCH (10:18)
[2022-08-13] MEDS: Rosuvastatin 10 MG Tab PO SCH (10:18)
[2022-08-13] MEDS: DULoxetine 30 MG Cap PO SCH (10:18)
[2022-08-13] MEDS: Sodium Chloride 0.9% 1,000 ML IV SCH (10:21)
[2022-08-13] MEDS ORDERED: Insulin Lispro 100 Unit/ML 3 ML KwikPen SUBCUT ONE (12:04)
[2022-08-13] MEDS: Insulin Lispro 100 Unit/ML 3 ML KwikPen SUBCUT SCH ×2 (12:33→17:29)
[2022-08-13] MEDS: Gabapentin 100 MG Cap PO SCH (20:24)
[2022-08-13] MEDS ORDERED: Insulin Glargine,Human Rec. Analog 100 Units/ML 3 ML Pen SUBCUT ONE (22:28)
[2022-08-14] MEDS: Sodium Chloride 0.9% 1,000 ML IV SCH (01:13)
[2022-08-14 07:15] LABS: BASOPHILS ABSOLUTE AUTO 0.1 x10-3/uL (0.0-0.1); BASOPHILS PERCENT AUTO 0.6 % (0.2-1.5); EOSINOPHILS ABSOLUTE AUTO 0.4 x10-3/uL (0.0-0.8); EOSINOPHILS PERCENT AUTO 4.2 % (0.6-8.1); HEMATOCRIT 36.7 % (34.2-48.2); HEMOGLOBIN 12.2 g/dL (11.4-15.5); LYMPHOCYTES ABSOLUTE AUTO 1.8 x10-3/uL (1.0-4.4); LYMPHOCYTES PERCENT AUTO 18.5 % (18.4-52.1); MEAN CORPUSCULAR HEMOGLOBIN 30.5 pg (23.9-33.9); MEAN CORPUSCULAR HGB CONC 33.1 g/dL (31.9-34.8); MEAN CORPUSCULAR VOLUME 92.2 fL (76.7-100.5); MEAN PLATELET VOLUME 9.3 fL (7.1-12.4); MONOCYTES ABSOLUTE AUTO 0.8 x10-3/uL (0.3-1.0); MONOCYTES PERCENT AUTO 8.2 % (4.4-15.7); NEUTROPHILS ABSOLUTE AUTO 6.7 x10-3/uL (1.5-6.3); NEUTROPHILS PERCENT AUTO 68.5 % (30.8-76.2); PLATELET COUNT,PLT 246 x10(3)uL (151-488); RED BLOOD CELL COUNT 3.98 x10(6)uL (3.60-5.20); RED CELL DISTRIBUTION WIDTH 13.9 % (12.3-16.5); WHITE BLOOD CELL COUNT,WBC 9.8 x10-3/uL (3.0-10.3)
[2022-08-14 07:24] LABS: ALBUMIN 2.8 g/dL (3.2-4.6); BLOOD UREA NITROGEN,BUN 41 mg/dL (7-18); BUN/CREATININE RATIO 22.8 (9-20); CALCIUM 9.1 mg/dL (8.6-10.2); CARBON DIOXIDE,CO2 30 mmol/L (21-32); CHLORIDE,CL 102 mmol/L (100-110); CREATININE 1.8 mg/dL (0.55-1.02); EST CRCL DRUG DOSING (CG) 21.53 mL/min; ESTIMATED GFR 28 mL/min (>60); GLUCOSE RANDOM 176 mg/dL (80-116); PHOSPHORUS 3.7 mg/dL (2.6-4.6); POTASSIUM,K 3.1 mmol/L (3.5-5.3); SODIUM,NA 140 mmol/L (135-145)
[2022-08-14] MEDS ORDERED: Levothyroxine 100 MCG Tab PO SCH (07:30)
[2022-08-14] MEDS: Insulin Lispro 100 Unit/ML 3 ML KwikPen SUBCUT SCH (07:58)
[2022-08-14] MEDS: Aspirin 81 MG Tab.EC PO SCH (08:04)
[2022-08-14] MEDS: Potassium Chloride 20 MEQ Tab.ER PO SCH (08:04)
[2022-08-14] MEDS: Allopurinol 300 MG Tab PO SCH (08:05)
[2022-08-14] MEDS: Cholecalciferol (Vitamin D3) 25 MCG Tab PO SCH (08:05)
[2022-08-14] MEDS: Metoprolol Succinate 25 MG Tab.ER PO SCH (08:12)
[2022-08-14] MEDS: amLODIPine 10 MG Tab PO SCH (08:12)
[2022-08-14] MEDS: Rosuvastatin 10 MG Tab PO SCH (08:52)
[2022-08-14] MEDS: Empagliflozin 10 MG Tab PO SCH (08:52)
[2022-08-14] MEDS: DULoxetine 30 MG Cap PO SCH (08:52)
== END 2022-08-14 11:36 | disposition home or self-care (01) | DRG 872 ==
LOC: FB.ED 13:24 → FB.MS 18:35
PROVIDERS: ADMIT Family Medicine; ATTEND Family Medicine
DX: A41.9 Sepsis, unspecified organism (principal); N17.9 Acute kidney failure, unspecified; F33.9 Major depressive disorder, recurrent, unspecified; N18.4 Chronic kidney disease, stage 4 (severe); E11.22 Type 2 diabetes mellitus with diabetic chronic kidney disease; R65.20 Severe sepsis without septic shock; I12.9 Hypertensive chronic kidney disease with stage 1 through stage 4 chronic kidney disease, or unspecified chronic kidney disease; E11.42 Type 2 diabetes mellitus with diabetic polyneuropathy; E86.0 Dehydration; E87.6 Hypokalemia; R59.0 Localized enlarged lymph nodes; E11.65 Type 2 diabetes mellitus with hyperglycemia; E66.01 Morbid (severe) obesity due to excess calories; R21 Rash and other nonspecific skin eruption; E03.9 Hypothyroidism, unspecified; Z66 Do not resuscitate; K59.00 Constipation, unspecified; G47.30 Sleep apnea, unspecified; E66.9 Obesity, unspecified; Z68.36 Body mass index [BMI] 36.0-36.9, adult; Z79.82 Long term (current) use of aspirin; Z79.84 Long term (current) use of oral hypoglycemic drugs; Z79.4 Long term (current) use of insulin; Z98.890 Other specified postprocedural states; Z90.722 Acquired absence of ovaries, bilateral; Z79.899 Other long term (current) drug therapy; Z86.73 Personal history of transient ischemic attack (TIA), and cerebral infarction without residual deficits
CPT/HCPCS: 36415; 71045; 80048; 81001; 82947 ×3; 83605; 83880; 85027; 86140; 87040 ×2; 87086; 96365; 96366; 96368; 99285; J1815; J2543; J3480 ×2; J3490; J7030 ×2; 74176; 80053; 80069; 80202; 83690; 83735; 85025; 99223; 99238; A9270-GY; J3370; J7042; J7050

== ENCOUNTER 2022-08-22 17:40 | Emergency (ER) | payer MEDICARE ==
[2022-08-22] MEDS ORDERED: Insulin Glargine,Human Rec. Analog 100 Units/ML 3 ML Pen SUBCUT ONE (17:41)
[2022-08-22] MEDS: Sodium Chloride 0.9% 1,000 ML IV SCH (19:30)
[2022-08-22 19:41] LABS: ALBUMIN 3.8 g/dL (3.2-4.6); BLOOD UREA NITROGEN,BUN 47 mg/dL (7-18); BUN/CREATININE RATIO 20.4 (9-20); CALCIUM 9.4 mg/dL (8.6-10.2); CARBON DIOXIDE,CO2 31 mmol/L (21-32); CHLORIDE,CL 97 mmol/L (100-110); EST CRCL DRUG DOSING (CG) 16.85 mL/min; ESTIMATED GFR 21 mL/min (>60); GLUCOSE RANDOM 244 mg/dL (80-116); PHOSPHORUS 3.2 mg/dL (2.6-4.6); SODIUM,NA 138 mmol/L (135-145)
[2022-08-22 19:45] LABS: CREATININE 2.3 mg/dL (0.55-1.02); POTASSIUM,K 2.8 mmol/L (3.5-5.3)
[2022-08-22] MEDS: Potassium Chloride 20 MEQ Tab.ER PO ONE (19:58)
[2022-08-22 20:03] LABS: HEMOGLOBIN A1C 9.8 % (<5.7)
[2022-08-22] MEDS: Insulin Glargine,Human Rec. Analog 100 Units/ML 3 ML Pen SUBCUT STA (20:43)
[2022-08-22] MEDS: Magnesium Sulfate/Water 2 GM in Premix Bag 1 BAG IV ONE (20:43)
[2022-08-22 21:18] LABS: BILIRUBIN,URINE NEGATIVE (NEGATIVE); GLUCOSE,URINE 250 mg/dL (NORMAL); KETONES,URINE NEGATIVE (NEGATIVE); LEUKOCYTE ESTERASE,URINE NEGATIVE (NEGATIVE); NITRITE,URINE NEGATIVE (NEGATIVE); OCCULT BLOOD,URINE NEGATIVE (NEGATIVE); PROTEIN,URINE NEGATIVE (NEGATIVE); UROBILINOGEN,URINE NORMAL (NEGATIVE)
[2022-08-22 21:21] LABS: APPEARANCE,URINE CLEAR (CLEAR); BACTERIA,URINE OCCASIONAL (NS); COLOR,URINE YELLOW (YELLOW); RBC,URINE 0-5 (0-5); SQUAMOUS EPITHELIAL CELLS,UR OCCASIONAL (NS,R,O); WBC,URINE 0-5 (0-5)
[2022-08-22] MEDS: Amoxicillin/Clavulanate K 875-125 MG Tab PO ONE (22:05)
== END 2022-08-22 22:10 | disposition home or self-care (01) ==
LOC: FB.ED 17:40
DX: E11.65 Type 2 diabetes mellitus with hyperglycemia (principal); D72.829 Elevated white blood cell count, unspecified; A49.9 Bacterial infection, unspecified; E87.6 Hypokalemia; N15.9 Renal tubulo-interstitial disease, unspecified; E86.1 Hypovolemia; E86.0 Dehydration; I12.9 Hypertensive chronic kidney disease with stage 1 through stage 4 chronic kidney disease, or unspecified chronic kidney disease; E11.22 Type 2 diabetes mellitus with diabetic chronic kidney disease; N18.9 Chronic kidney disease, unspecified; E11.40 Type 2 diabetes mellitus with diabetic neuropathy, unspecified; E03.9 Hypothyroidism, unspecified; E66.9 Obesity, unspecified; Z79.899 Other long term (current) drug therapy; Z79.82 Long term (current) use of aspirin; Z79.4 Long term (current) use of insulin; Z79.85 Long-term (current) use of injectable non-insulin antidiabetic drugs; Z86.73 Personal history of transient ischemic attack (TIA), and cerebral infarction without residual deficits; Z68.37 Body mass index [BMI] 37.0-37.9, adult
CPT/HCPCS: 36415; 80069; 81001; 83036; 83735; 85651; 86140; 88104; 96361; 96365; 99284; A9270; J1815; J3475; J7030

== ENCOUNTER 2024-10-30 22:58 | Inpatient (IN) | payer MEDICARE, BC ==
[2024-10-30] MEDS ORDERED: Sodium Chloride 0.9% 10 ML Syringe FLUSH PRN (23:06)
[2024-10-31 00:48] LABS: BASOPHILS ABSOLUTE AUTO 0.1 x10-3/uL (0.0-0.1); BASOPHILS PERCENT AUTO 0.6 % (0.2-1.5); EOSINOPHILS ABSOLUTE AUTO 0.2 x10-3/uL (0.0-0.8); EOSINOPHILS PERCENT AUTO 2.8 % (0.6-8.1); LYMPHOCYTES ABSOLUTE AUTO 2.1 x10-3/uL (1.0-4.4); LYMPHOCYTES PERCENT AUTO 26.5 % (18.4-52.1); MEAN PLATELET VOLUME 8.4 fL (7.1-12.4); MONOCYTES ABSOLUTE AUTO 0.6 x10-3/uL (0.3-1.0); MONOCYTES PERCENT AUTO 7.0 % (4.4-15.7); NEUTROPHILS ABSOLUTE AUTO 5.0 x10-3/uL (1.5-6.3); NEUTROPHILS PERCENT AUTO 63.1 % (30.8-76.2); PLATELET COUNT,PLT 254 x10(3)uL (151-488); RED BLOOD CELL COUNT 4.67 x10(6)uL (3.60-5.20); RED CELL DISTRIBUTION WIDTH 15.5 % (12.3-16.5); WHITE BLOOD CELL COUNT,WBC 7.9 x10-3/uL (3.0-10.3)
[2024-10-31 00:55] LABS: BLOOD UREA NITROGEN,BUN 23 mg/dL (7-18); CARBON DIOXIDE,CO2 31 mmol/L (21-32); CHLORIDE,CL 101 mmol/L (100-110); CREATININE 1.6 mg/dL (0.55-1.02); ESTIMATED GFR 32 mL/min (>60); GLUCOSE RANDOM 237 mg/dL (80-116); POTASSIUM,K 4.1 mmol/L (3.5-5.3); SODIUM,NA 140 mmol/L (135-145)
[2024-10-31 00:59] LABS: A/G RATIO 1.1; ALANINE AMINOTRANSFERASE,ALT 31 U/L (12-36); ASPARTATE AMNIOTRANSFERASE,AST 26 IU/L (5-25); BILIRUBIN TOTAL 0.4 mg/dL (0.1-1.3); PROTEIN TOTAL,TP 7.5 g/dL (6.0-8.0)
[2024-10-31 01:03] LABS: LACTIC ACID 1.4 mmol/L (0.4-2.0)
[2024-10-31 03:42] LABS: GLUCOSE,URINE >1000 mg/dL (NORMAL); OCCULT BLOOD,URINE NEGATIVE (NEGATIVE)
[2024-10-31 03:43] LABS: APPEARANCE,URINE CLOUDY (CLEAR)
[2024-10-31 03:52] LABS: SQUAMOUS EPITHELIAL CELLS,UR FEW (NS,R,O)
[2024-10-31] MEDS ORDERED: Sennosides/Docusate Sodium 50-8.6 MG Tab PO PRN (04:44)
[2024-10-31] MEDS ORDERED: Ondansetron 4 MG/2 ML SDV IV PRN (04:44)
[2024-10-31] MEDS ORDERED: 50% Dextrose in Water 50 ML Syringe IVPUSH PRN (09:48)
[2024-10-31] MEDS: Insulin Lispro 100 Unit/ML 3 ML KwikPen SUBCUT SCH (11:57)
[2024-10-31] MEDS: Insulin Glargine,Human Rec. Analog 100 Units/ML 3 ML Pen SUBCUT SCH (20:11)
[2024-11-01 06:58] LABS: BASOPHILS ABSOLUTE AUTO 0.0 x10-3/uL (0.0-0.1); BASOPHILS PERCENT AUTO 0.5 % (0.2-1.5); EOSINOPHILS ABSOLUTE AUTO 0.2 x10-3/uL (0.0-0.8); EOSINOPHILS PERCENT AUTO 1.9 % (0.6-8.1); LYMPHOCYTES ABSOLUTE AUTO 2.0 x10-3/uL (1.0-4.4); LYMPHOCYTES PERCENT AUTO 24.7 % (18.4-52.1); MEAN PLATELET VOLUME 8.6 fL (7.1-12.4); MONOCYTES ABSOLUTE AUTO 0.7 x10-3/uL (0.3-1.0); MONOCYTES PERCENT AUTO 8.4 % (4.4-15.7); NEUTROPHILS ABSOLUTE AUTO 5.2 x10-3/uL (1.5-6.3); NEUTROPHILS PERCENT AUTO 64.5 % (30.8-76.2); PLATELET COUNT,PLT 244 x10(3)uL (151-488); RED BLOOD CELL COUNT 4.21 x10(6)uL (3.60-5.20); RED CELL DISTRIBUTION WIDTH 15.5 % (12.3-16.5); WHITE BLOOD CELL COUNT,WBC 8.1 x10-3/uL (3.0-10.3)
[2024-11-01 07:17] LABS: A/G RATIO 1.2; ALANINE AMINOTRANSFERASE,ALT 32 U/L (12-36); ASPARTATE AMNIOTRANSFERASE,AST 34 IU/L (5-25); BILIRUBIN TOTAL 0.4 mg/dL (0.1-1.3); BLOOD UREA NITROGEN,BUN 22 mg/dL (7-18); CARBON DIOXIDE,CO2 31 mmol/L (21-32); CHLORIDE,CL 103 mmol/L (100-110); CREATININE 1.6 mg/dL (0.55-1.02); EST CRCL DRUG DOSING (CG) 21.44 mL/min; ESTIMATED GFR 32 mL/min (>60); GLUCOSE RANDOM 141 mg/dL (80-116); POTASSIUM,K 3.8 mmol/L (3.5-5.3); PROTEIN TOTAL,TP 6.9 g/dL (6.0-8.0); SODIUM,NA 140 mmol/L (135-145)
[2024-11-01] MEDS: Cholecalciferol (Vitamin D3) 25 MCG Tab PO SCH (08:23)
[2024-11-02 06:18] LABS: A/G RATIO 1.1; ALANINE AMINOTRANSFERASE,ALT 39 U/L (12-36); ASPARTATE AMNIOTRANSFERASE,AST 44 IU/L (5-25); BILIRUBIN TOTAL 0.4 mg/dL (0.1-1.3); BLOOD UREA NITROGEN,BUN 25 mg/dL (7-18); CARBON DIOXIDE,CO2 31 mmol/L (21-32); CHLORIDE,CL 104 mmol/L (100-110); CREATININE 1.6 mg/dL (0.55-1.02); EST CRCL DRUG DOSING (CG) 21.44 mL/min; ESTIMATED GFR 32 mL/min (>60); GLUCOSE RANDOM 159 mg/dL (80-116); POTASSIUM,K 4.1 mmol/L (3.5-5.3); PROTEIN TOTAL,TP 6.8 g/dL (6.0-8.0); SODIUM,NA 141 mmol/L (135-145)
== END 2024-11-04 09:45 | disposition swing bed (61) | DRG 690 ==
LOC: FB.ED 22:58 → FB.MS 10-31 04:38 → OBSVTOIN 10-31 09:50
PROVIDERS: ADMIT Emergency Medicine; ATTEND Family Medicine
DX: I12.9 Hypertensive chronic kidney disease with stage 1 through stage 4 chronic kidney disease, or unspecified chronic kidney disease (principal); N18.9 Chronic kidney disease, unspecified; R53.1 Weakness; N39.0 Urinary tract infection, site not specified; N30.00 Acute cystitis without hematuria; Z68.42 Body mass index [BMI] 45.0-49.9, adult; N18.4 Chronic kidney disease, stage 4 (severe); Z51.5 Encounter for palliative care; Z66 Do not resuscitate; R29.6 Repeated falls; Z68.41 Body mass index [BMI] 40.0-44.9, adult; G47.30 Sleep apnea, unspecified; M79.7 Fibromyalgia; E11.22 Type 2 diabetes mellitus with diabetic chronic kidney disease; E11.40 Type 2 diabetes mellitus with diabetic neuropathy, unspecified; E03.9 Hypothyroidism, unspecified; M19.90 Unspecified osteoarthritis, unspecified site; F41.9 Anxiety disorder, unspecified; E86.0 Dehydration; E66.01 Morbid (severe) obesity due to excess calories; G31.9 Degenerative disease of nervous system, unspecified; I13.10 Hypertensive heart and chronic kidney disease without heart failure, with stage 1 through stage 4 chronic kidney disease, or unspecified chronic kidney disease; N18.32 Chronic kidney disease, stage 3b; B96.20 Unspecified Escherichia coli [E. coli] as the cause of diseases classified elsewhere; Z79.899 Other long term (current) drug therapy; Z79.4 Long term (current) use of insulin; Z86.73 Personal history of transient ischemic attack (TIA), and cerebral infarction without residual deficits; Z98.49 Cataract extraction status, unspecified eye; Z90.722 Acquired absence of ovaries, bilateral; Z90.79 Acquired absence of other genital organ(s); Z98.890 Other specified postprocedural states
CPT/HCPCS: 36415; 70450; 71045; 80053; 81001; 83605; 84484; 85025; 87086; 87088; 87186; 87428; 93005; A9270 ×4; J0696; J1650; J7030; 36410; 82947; 87040; 93010; 97110-GO; 97161-GP; 97165-GO; 97530-GO; 97530-GP; 99100; 99222; 99232; 99238; 99285; J1815-GY

== ENCOUNTER 2024-11-04 09:52 | Inpatient (IN) | payer MEDICARE, BC ==
[2024-11-04] MEDS: Insulin Lispro 100 Unit/ML 3 ML KwikPen SUBCUT SCH (11:51)
[2024-11-04] MEDS: Insulin Glargine,Human Rec. Analog 100 Units/ML 3 ML Pen SUBCUT SCH (20:39)
[2024-11-05] MEDS: Cholecalciferol (Vitamin D3) 25 MCG Tab PO SCH (08:11)
[2024-11-07] MEDS ORDERED: 50% Dextrose in Water 50 ML Syringe IVPUSH PRN (20:25)
[2024-11-07] MEDS: Insulin Lispro 100 Unit/ML 3 ML KwikPen SUBCUT ONE (20:30)
[2024-11-10] MEDS: Insulin Lispro 100 Unit/ML 3 ML KwikPen SUBCUT ONE (21:04)
== END 2024-11-11 10:20 | disposition home health service (06) | DRG 948 ==
LOC: FB.MS 09:52
PROVIDERS: ADMIT Family Medicine; ATTEND Family Medicine
DX: R53.81 Other malaise (principal); N39.0 Urinary tract infection, site not specified; Z68.42 Body mass index [BMI] 45.0-49.9, adult; Z66 Do not resuscitate; G47.30 Sleep apnea, unspecified; K59.09 Other constipation; I12.9 Hypertensive chronic kidney disease with stage 1 through stage 4 chronic kidney disease, or unspecified chronic kidney disease; N18.9 Chronic kidney disease, unspecified; M19.90 Unspecified osteoarthritis, unspecified site; M79.7 Fibromyalgia; E11.40 Type 2 diabetes mellitus with diabetic neuropathy, unspecified; F41.9 Anxiety disorder, unspecified; E03.9 Hypothyroidism, unspecified; R29.6 Repeated falls; R26.2 Difficulty in walking, not elsewhere classified; E66.01 Morbid (severe) obesity due to excess calories; E11.22 Type 2 diabetes mellitus with diabetic chronic kidney disease; Z79.899 Other long term (current) drug therapy; Z98.49 Cataract extraction status, unspecified eye; Z86.73 Personal history of transient ischemic attack (TIA), and cerebral infarction without residual deficits; Z98.890 Other specified postprocedural states; Z79.4 Long term (current) use of insulin
CPT/HCPCS: 82947; 94150; 97116-GP; 97530-GO; 97530-GP; 97535-GO; A9270-GY; J1815-GY

== ENCOUNTER 2024-11-12 11:38 | Inpatient (IN) | payer MEDICARE, BC ==
[2024-11-12 15:10] LABS: BASOPHILS ABSOLUTE AUTO 0.1 x10-3/uL (0.0-0.1); BASOPHILS PERCENT AUTO 0.6 % (0.2-1.5); EOSINOPHILS ABSOLUTE AUTO 0.2 x10-3/uL (0.0-0.8); EOSINOPHILS PERCENT AUTO 1.9 % (0.6-8.1); LYMPHOCYTES ABSOLUTE AUTO 1.4 x10-3/uL (1.0-4.4); LYMPHOCYTES PERCENT AUTO 14.4 % (18.4-52.1); MEAN PLATELET VOLUME 8.7 fL (7.1-12.4); MONOCYTES ABSOLUTE AUTO 0.6 x10-3/uL (0.3-1.0); MONOCYTES PERCENT AUTO 6.1 % (4.4-15.7); NEUTROPHILS ABSOLUTE AUTO 7.6 x10-3/uL (1.5-6.3); NEUTROPHILS PERCENT AUTO 77.0 % (30.8-76.2); PLATELET COUNT,PLT 236 x10(3)uL (151-488); RED BLOOD CELL COUNT 3.05 x10(6)uL (3.60-5.20); RED CELL DISTRIBUTION WIDTH 15.1 % (12.3-16.5); WHITE BLOOD CELL COUNT,WBC 9.9 x10-3/uL (3.0-10.3)
[2024-11-12 15:17] LABS: A/G RATIO 1.1; ALANINE AMINOTRANSFERASE,ALT 50 U/L (12-36); ASPARTATE AMNIOTRANSFERASE,AST 52 IU/L (5-25); BILIRUBIN TOTAL 0.3 mg/dL (0.1-1.3); BLOOD UREA NITROGEN,BUN 55 mg/dL (7-18); CARBON DIOXIDE,CO2 28 mmol/L (21-32); CHLORIDE,CL 103 mmol/L (100-110); CREATININE 1.9 mg/dL (0.55-1.02); EST CRCL DRUG DOSING (CG) 18.05 mL/min; ESTIMATED GFR 26 mL/min (>60); POTASSIUM,K 4.6 mmol/L (3.5-5.3); PROTEIN TOTAL,TP 6.1 g/dL (6.0-8.0); SODIUM,NA 139 mmol/L (135-145)
[2024-11-12 15:19] LABS: GLUCOSE RANDOM 424 mg/dL (80-116)
[2024-11-12] MEDS: Insulin Lispro 100 Unit/ML 3 ML KwikPen SUBCUT SCH (18:13)
[2024-11-12] MEDS: Insulin Glargine,Human Rec. Analog 100 Units/ML 3 ML Pen SUBCUT SCH (21:02)
[2024-11-12] MEDS: Aluminum Hydroxide/Magnesium Hydroxide Susp 30 ML Cup PO PRN (23:56)
[2024-11-13] MEDS: Cholecalciferol (Vitamin D3) 25 MCG Tab PO SCH (09:19)
[2024-11-13] MEDS: Insulin Lispro 100 Unit/ML 3 ML KwikPen SUBCUT SCH ×2 (09:21→17:56)
[2024-11-13] MEDS ORDERED: 50% Dextrose in Water 50 ML Syringe IVPUSH PRN (14:37)
[2024-11-19 11:02] LABS: BASOPHILS ABSOLUTE AUTO 0.1 x10-3/uL (0.0-0.1); BASOPHILS PERCENT AUTO 0.7 % (0.2-1.5); EOSINOPHILS ABSOLUTE AUTO 0.3 x10-3/uL (0.0-0.8); EOSINOPHILS PERCENT AUTO 3.6 % (0.6-8.1); LYMPHOCYTES ABSOLUTE AUTO 1.5 x10-3/uL (1.0-4.4); LYMPHOCYTES PERCENT AUTO 15.8 % (18.4-52.1); MEAN PLATELET VOLUME 8.6 fL (7.1-12.4); MONOCYTES ABSOLUTE AUTO 0.6 x10-3/uL (0.3-1.0); MONOCYTES PERCENT AUTO 6.4 % (4.4-15.7); NEUTROPHILS ABSOLUTE AUTO 6.9 x10-3/uL (1.5-6.3); NEUTROPHILS PERCENT AUTO 73.5 % (30.8-76.2); PLATELET COUNT,PLT 271 x10(3)uL (151-488); RED CELL DISTRIBUTION WIDTH 15.3 % (12.3-16.5); WHITE BLOOD CELL COUNT,WBC 9.3 x10-3/uL (3.0-10.3)
[2024-11-19 11:14] LABS: BLOOD UREA NITROGEN,BUN 26 mg/dL (7-18); CARBON DIOXIDE,CO2 30 mmol/L (21-32); CHLORIDE,CL 102 mmol/L (100-110); CREATININE 1.7 mg/dL (0.55-1.02); EST CRCL DRUG DOSING (CG) 20.18 mL/min; ESTIMATED GFR 30 mL/min (>60); GLUCOSE RANDOM 309 mg/dL (80-116); POTASSIUM,K 4.1 mmol/L (3.5-5.3); SODIUM,NA 138 mmol/L (135-145)
[2024-11-19 11:20] LABS: A/G RATIO 1.1; ALANINE AMINOTRANSFERASE,ALT 71 U/L (12-36); ASPARTATE AMNIOTRANSFERASE,AST 41 IU/L (5-25); BILIRUBIN TOTAL 0.4 mg/dL (0.1-1.3); PROTEIN TOTAL,TP 6.4 g/dL (6.0-8.0)
[2024-11-19 11:28] LABS: RED BLOOD CELL COUNT 2.68 x10(6)uL (3.60-5.20)
[2024-11-19] MEDS: Furosemide 20 MG/2 ML VIAL IVPUSH ONE (12:49)
[2024-11-19 13:14] LABS: APPEARANCE,URINE CLEAR (CLEAR); GLUCOSE,URINE 100 mg/dL (NORMAL); OCCULT BLOOD,URINE MODERATE (NEGATIVE); SQUAMOUS EPITHELIAL CELLS,UR FEW (NS,R,O); YEAST,URINE FEW (NS)
[2024-11-20] MEDS: Furosemide 40 MG/4 ML VIAL IVPUSH ONE (09:19)
== END 2024-11-20 12:50 | DRG 948 ==
LOC: FB.MS 11:38
PROVIDERS: ADMIT Family Medicine; ATTEND Family Medicine
DX: R53.1 Weakness (principal); Z68.42 Body mass index [BMI] 45.0-49.9, adult; N18.4 Chronic kidney disease, stage 4 (severe); F33.1 Major depressive disorder, recurrent, moderate; N17.9 Acute kidney failure, unspecified; N30.00 Acute cystitis without hematuria; Z66 Do not resuscitate; E11.22 Type 2 diabetes mellitus with diabetic chronic kidney disease; R29.6 Repeated falls; I12.9 Hypertensive chronic kidney disease with stage 1 through stage 4 chronic kidney disease, or unspecified chronic kidney disease; E11.42 Type 2 diabetes mellitus with diabetic polyneuropathy; E03.9 Hypothyroidism, unspecified; E66.01 Morbid (severe) obesity due to excess calories; M19.011 Primary osteoarthritis, right shoulder; Z96.651 Presence of right artificial knee joint; G47.30 Sleep apnea, unspecified; M79.7 Fibromyalgia; G61.1 Serum neuropathy; R60.1 Generalized edema; Z79.4 Long term (current) use of insulin; Z79.899 Other long term (current) drug therapy; Z86.73 Personal history of transient ischemic attack (TIA), and cerebral infarction without residual deficits; Z90.722 Acquired absence of ovaries, bilateral; Z90.79 Acquired absence of other genital organ(s); Z98.49 Cataract extraction status, unspecified eye; Z98.890 Other specified postprocedural states
CPT/HCPCS: 36415; 80053; 81001; 82947; 83036; 83880; 85025; 97116-GP; 97161-GP; 97165-GO; 97530-GO; 97530-GP; 97535-GO; 99305; 99309; 99315; A9270-GY; J1815-GY; J1938

== ENCOUNTER 2024-12-02 16:47 | Inpatient (IN) | payer MEDICARE, BC ==
[2024-12-02 17:26] LABS: MEAN PLATELET VOLUME 8.6 fL (7.1-12.4); PLATELET COUNT,PLT 243 x10(3)uL (151-488); RED BLOOD CELL COUNT 3.35 x10(6)uL (3.60-5.20); RED CELL DISTRIBUTION WIDTH 14.6 % (12.3-16.5); WHITE BLOOD CELL COUNT,WBC 20.3 x10-3/uL (3.0-10.3)
[2024-12-02 17:35] LABS: A/G RATIO 0.9; ALANINE AMINOTRANSFERASE,ALT 31 U/L (12-36); ASPARTATE AMNIOTRANSFERASE,AST 28 IU/L (5-25); BILIRUBIN TOTAL 0.6 mg/dL (0.1-1.3); BLOOD UREA NITROGEN,BUN 17 mg/dL (7-18); CARBON DIOXIDE,CO2 32 mmol/L (21-32); CHLORIDE,CL 99 mmol/L (100-110); ESTIMATED GFR 23 mL/min (>60); GLUCOSE RANDOM 284 mg/dL (80-116); LYMPHOCYTES PERCENT MAN 5 % (13-37); MONOCYTES PERCENT MAN 2 % (4-12); POTASSIUM,K 3.3 mmol/L (3.5-5.3); PROTEIN TOTAL,TP 6.8 g/dL (6.0-8.0); SEG NEUTROPHILS PERCENT MAN 93 % (46-82); SODIUM,NA 141 mmol/L (135-145)
[2024-12-02 17:37] LABS: CREATININE 2.1 mg/dL (0.55-1.02)
[2024-12-02] MEDS ORDERED: Clindamycin in 0.9 % Sod Chlor 600 MG in Premix Bag 1 BAG IV SCH (19:00)
[2024-12-02] MEDS: Sodium Chloride 0.9% 10 ML Syringe FLUSH PRN (19:15)
[2024-12-02] MEDS: metroNIDAZOLE/Normal Saline 500 MG in Premix Bag 1 BAG IV SCH (19:25)
[2024-12-02] MEDS: Clindamycin in 0.9 % Sod Chlor 600 MG in Premix Bag 1 BAG IV ONE (20:15)
[2024-12-02] MEDS ORDERED: Sodium Chloride 0.9% 10 ML Syringe FLUSH PRN (20:16)
[2024-12-02 21:55] LABS: GLUCOSE,URINE 250 mg/dL (NORMAL); OCCULT BLOOD,URINE NEGATIVE (NEGATIVE)
[2024-12-02 22:04] LABS: APPEARANCE,URINE CLEAR (CLEAR); SQUAMOUS EPITHELIAL CELLS,UR OCCASIONAL (NS,R,O); YEAST,URINE MANY (NS)
[2024-12-02] MEDS: Saccharomyces Boulardii (Probiotic) 250 MG Cap PO SCH (23:22)
[2024-12-03] MEDS: Clindamycin in 0.9 % Sod Chlor 600 MG in Premix Bag 1 BAG IV SCH (02:31)
[2024-12-03 06:17] LABS: MEAN PLATELET VOLUME 8.3 fL (7.1-12.4); PLATELET COUNT,PLT 223 x10(3)uL (151-488); RED BLOOD CELL COUNT 2.80 x10(6)uL (3.60-5.20); RED CELL DISTRIBUTION WIDTH 14.2 % (12.3-16.5); WHITE BLOOD CELL COUNT,WBC 16.2 x10-3/uL (3.0-10.3)
[2024-12-03 06:25] LABS: A/G RATIO 0.9; ALANINE AMINOTRANSFERASE,ALT 23 U/L (12-36); ASPARTATE AMNIOTRANSFERASE,AST 23 IU/L (5-25); BILIRUBIN TOTAL 0.4 mg/dL (0.1-1.3); BLOOD UREA NITROGEN,BUN 18 mg/dL (7-18); CARBON DIOXIDE,CO2 36 mmol/L (21-32); CHLORIDE,CL 101 mmol/L (100-110); CREATININE 1.8 mg/dL (0.55-1.02); EST CRCL DRUG DOSING (CG) 19.06 mL/min; ESTIMATED GFR 28 mL/min (>60); GLUCOSE RANDOM 210 mg/dL (80-116); POTASSIUM,K 3.2 mmol/L (3.5-5.3); PROTEIN TOTAL,TP 5.8 g/dL (6.0-8.0); SODIUM,NA 143 mmol/L (135-145)
[2024-12-03 07:05] LABS: BAND PERCENT MAN 3 % (0-6); LYMPHOCYTES PERCENT MAN 10 % (13-37); MONOCYTES PERCENT MAN 5 % (4-12); SEG NEUTROPHILS PERCENT MAN 82 % (46-82)
[2024-12-03] MEDS ORDERED: 50% Dextrose in Water 50 ML Syringe IVPUSH PRN (09:14)
[2024-12-03] MEDS ORDERED: Non-Formulary Medication 1 Each (Levothyroxine Sodium [Synthroid] 125 MCG Tablet) PO SCH (09:15)
[2024-12-03] MEDS: Potassium Chloride 20 MEQ Tab.ER PO SCH (10:43)
[2024-12-03] MEDS ORDERED: Clindamycin in 0.9 % Sod Chlor 600 MG in Premix Bag 1 BAG IV SCH (11:30)
[2024-12-03] MEDS: Insulin Lispro 100 Unit/ML 3 ML KwikPen SUBCUT SCH (11:50)
[2024-12-03] MEDS: Iopamidol 755 Mg/ML 100 ML Bottle IV SCH (16:39)
[2024-12-04 06:31] LABS: RED BLOOD CELL COUNT 3.12 x10(6)uL (3.60-5.20); WHITE BLOOD CELL COUNT,WBC 17.0 x10-3/uL (3.0-10.3)
[2024-12-04 06:32] LABS: MEAN PLATELET VOLUME 8.8 fL (7.1-12.4); PLATELET COUNT,PLT 237 x10(3)uL (151-488); RED CELL DISTRIBUTION WIDTH 14.5 % (12.3-16.5)
[2024-12-04 06:44] LABS: SODIUM,NA 139 mmol/L (135-145)
[2024-12-04 06:45] LABS: A/G RATIO 0.9; ALANINE AMINOTRANSFERASE,ALT 24 U/L (12-36); ASPARTATE AMNIOTRANSFERASE,AST 29 IU/L (5-25); BILIRUBIN TOTAL 0.5 mg/dL (0.1-1.3); BLOOD UREA NITROGEN,BUN 16 mg/dL (7-18); CARBON DIOXIDE,CO2 32 mmol/L (21-32); CHLORIDE,CL 100 mmol/L (100-110); CREATININE 1.6 mg/dL (0.55-1.02); EST CRCL DRUG DOSING (CG) 21.44 mL/min; ESTIMATED GFR 32 mL/min (>60); GLUCOSE RANDOM 200 mg/dL (80-116); POTASSIUM,K 3.5 mmol/L (3.5-5.3); PROTEIN TOTAL,TP 6.6 g/dL (6.0-8.0)
[2024-12-04 06:51] LABS: BAND PERCENT MAN 1 % (0-6); LYMPHOCYTES PERCENT MAN 10 % (13-37); MONOCYTES PERCENT MAN 2 % (4-12); SEG NEUTROPHILS PERCENT MAN 87 % (46-82)
[2024-12-04] MEDS: Potassium Chloride 20 MEQ Tab.ER PO SCH (08:23)
[2024-12-04] MEDS: Furosemide 40 MG/4 ML VIAL IVPUSH ONE (10:04)
[2024-12-04 10:23] LABS: GLUCOSE,URINE 100 mg/dL (NORMAL); OCCULT BLOOD,URINE NEGATIVE (NEGATIVE)
[2024-12-04 10:36] LABS: APPEARANCE,URINE CLEAR (CLEAR); SQUAMOUS EPITHELIAL CELLS,UR OCCASIONAL (NS,R,O); YEAST,URINE FEW (NS)
[2024-12-04] MEDS: Insulin Glargine,Human Rec. Analog 100 Units/ML 3 ML Pen SUBCUT SCH (20:09)
[2024-12-05 06:20] LABS: BASOPHILS ABSOLUTE AUTO 0.0 x10-3/uL (0.0-0.1); BASOPHILS PERCENT AUTO 0.5 % (0.2-1.5); EOSINOPHILS ABSOLUTE AUTO 0.2 x10-3/uL (0.0-0.8); EOSINOPHILS PERCENT AUTO 2.4 % (0.6-8.1); LYMPHOCYTES ABSOLUTE AUTO 1.4 x10-3/uL (1.0-4.4); LYMPHOCYTES PERCENT AUTO 14.9 % (18.4-52.1); MEAN PLATELET VOLUME 8.5 fL (7.1-12.4); MONOCYTES ABSOLUTE AUTO 1.0 x10-3/uL (0.3-1.0); MONOCYTES PERCENT AUTO 10.8 % (4.4-15.7); NEUTROPHILS ABSOLUTE AUTO 6.6 x10-3/uL (1.5-6.3); NEUTROPHILS PERCENT AUTO 71.4 % (30.8-76.2); PLATELET COUNT,PLT 244 x10(3)uL (151-488); RED BLOOD CELL COUNT 3.17 x10(6)uL (3.60-5.20); RED CELL DISTRIBUTION WIDTH 14.2 % (12.3-16.5); WHITE BLOOD CELL COUNT,WBC 9.2 x10-3/uL (3.0-10.3)
[2024-12-05 06:34] LABS: A/G RATIO 1.0; ALANINE AMINOTRANSFERASE,ALT 32 U/L (12-36); ASPARTATE AMNIOTRANSFERASE,AST 34 IU/L (5-25); BILIRUBIN TOTAL 0.4 mg/dL (0.1-1.3); BLOOD UREA NITROGEN,BUN 15 mg/dL (7-18); CARBON DIOXIDE,CO2 30 mmol/L (21-32); CHLORIDE,CL 100 mmol/L (100-110); CREATININE 1.6 mg/dL (0.55-1.02); EST CRCL DRUG DOSING (CG) 21.44 mL/min; ESTIMATED GFR 32 mL/min (>60); GLUCOSE RANDOM 181 mg/dL (80-116); POTASSIUM,K 2.9 mmol/L (3.5-5.3); PROTEIN TOTAL,TP 6.6 g/dL (6.0-8.0); SODIUM,NA 139 mmol/L (135-145)
[2024-12-05] MEDS: Potassium Chloride 20 MEQ Tab.ER PO SCH (20:47)
[2024-12-06 06:33] LABS: BASOPHILS ABSOLUTE AUTO 0.1 x10-3/uL (0.0-0.1); BASOPHILS PERCENT AUTO 1.2 % (0.2-1.5); EOSINOPHILS ABSOLUTE AUTO 0.3 x10-3/uL (0.0-0.8); EOSINOPHILS PERCENT AUTO 4.3 % (0.6-8.1); LYMPHOCYTES ABSOLUTE AUTO 1.5 x10-3/uL (1.0-4.4); LYMPHOCYTES PERCENT AUTO 20.9 % (18.4-52.1); MEAN PLATELET VOLUME 8.3 fL (7.1-12.4); MONOCYTES ABSOLUTE AUTO 1.0 x10-3/uL (0.3-1.0); MONOCYTES PERCENT AUTO 13.0 % (4.4-15.7); NEUTROPHILS ABSOLUTE AUTO 4.5 x10-3/uL (1.5-6.3); NEUTROPHILS PERCENT AUTO 60.6 % (30.8-76.2); PLATELET COUNT,PLT 262 x10(3)uL (151-488); RED BLOOD CELL COUNT 3.07 x10(6)uL (3.60-5.20); RED CELL DISTRIBUTION WIDTH 14.5 % (12.3-16.5); WHITE BLOOD CELL COUNT,WBC 7.4 x10-3/uL (3.0-10.3)
[2024-12-06 06:41] LABS: A/G RATIO 1.0; ALANINE AMINOTRANSFERASE,ALT 26 U/L (12-36); ASPARTATE AMNIOTRANSFERASE,AST 31 IU/L (5-25); BILIRUBIN TOTAL 0.4 mg/dL (0.1-1.3); BLOOD UREA NITROGEN,BUN 12 mg/dL (7-18); CARBON DIOXIDE,CO2 32 mmol/L (21-32); CHLORIDE,CL 103 mmol/L (100-110); CREATININE 1.4 mg/dL (0.55-1.02); EST CRCL DRUG DOSING (CG) 24.50 mL/min; ESTIMATED GFR 38 mL/min (>60); GLUCOSE RANDOM 155 mg/dL (80-116); POTASSIUM,K 3.0 mmol/L (3.5-5.3); PROTEIN TOTAL,TP 6.4 g/dL (6.0-8.0); SODIUM,NA 140 mmol/L (135-145)
[2024-12-06] MEDS: Potassium Chloride 20 MEQ Tab.ER PO ONE (08:48)
== END 2024-12-06 10:50 | DRG 388 ==
LOC: FB.ED 16:47 → FB.MS 22:59
PROVIDERS: ADMIT Family Medicine; ATTEND Family Medicine
DX: K56.41 Fecal impaction (principal); J96.01 Acute respiratory failure with hypoxia; N17.9 Acute kidney failure, unspecified; N18.4 Chronic kidney disease, stage 4 (severe); Z68.42 Body mass index [BMI] 45.0-49.9, adult; Z51.5 Encounter for palliative care; Z66 Do not resuscitate; G47.30 Sleep apnea, unspecified; M19.90 Unspecified osteoarthritis, unspecified site; M79.7 Fibromyalgia; E11.40 Type 2 diabetes mellitus with diabetic neuropathy, unspecified; F41.9 Anxiety disorder, unspecified; E03.9 Hypothyroidism, unspecified; I12.9 Hypertensive chronic kidney disease with stage 1 through stage 4 chronic kidney disease, or unspecified chronic kidney disease; D63.8 Anemia in other chronic diseases classified elsewhere; E66.01 Morbid (severe) obesity due to excess calories; E87.6 Hypokalemia; R53.81 Other malaise; E11.22 Type 2 diabetes mellitus with diabetic chronic kidney disease; D72.829 Elevated white blood cell count, unspecified; Z86.73 Personal history of transient ischemic attack (TIA), and cerebral infarction without residual deficits; Z98.49 Cataract extraction status, unspecified eye; Z98.890 Other specified postprocedural states; Z79.4 Long term (current) use of insulin; Z79.899 Other long term (current) drug therapy
CPT/HCPCS: 36415; 74018; 74176; 80053; 81001; 85025; J0737; J1836; 51702; 71045; 71045-26; 71275; 71275-26; 82947; 83880; 85379; 97116-GP; 97161-GP; 97165-GO; 97530-GO; 97530-GP; 97535-GO; 99223; 99232; 99233; 99238; A9270-GY; J0456; J0696; J1650; J1815-GY; J1938; J7030; J7050; Q9967

== ENCOUNTER 2025-01-01 18:00 | Emergency (ER) | payer MEDICARE, BC ==
[2025-01-01] MEDS ORDERED: VANCOmycin 1.5 GM/300 ML 1.5 GM in Premix Bag 1 BAG IV SCH (18:45)
[2025-01-01 18:55] LABS: MEAN PLATELET VOLUME 8.1 fL (7.1-12.4); PLATELET COUNT,PLT 308 x10(3)uL (151-488); RED BLOOD CELL COUNT 3.54 x10(6)uL (3.60-5.20); RED CELL DISTRIBUTION WIDTH 15.2 % (12.3-16.5); WHITE BLOOD CELL COUNT,WBC 16.4 x10-3/uL (3.0-10.3)
[2025-01-01 19:02] LABS: BASE EXCESS VENOUS,POC 2 mmol/L (-2 - 3+); PCO2 VENOUS,POC 34 mmHg (41-51); PH VENOUS,POC 7.48 pH Units (7.32-7.43)
[2025-01-01 19:10] LABS: BAND PERCENT MAN 5 % (0-6); BASOPHILS PERCENT MAN 1 % (0-2); EOSINOPHILS PERCENT MAN 2 % (0-5); LACTIC ACID 2.0 mmol/L (0.4-2.0); LYMPHOCYTES PERCENT MAN 7 % (13-37); MONOCYTES PERCENT MAN 6 % (4-12); SEG NEUTROPHILS PERCENT MAN 79 % (46-82)
[2025-01-01 19:11] LABS: PRO B-TYPE NATRIUR PEPT,BNPPRO 561.0 pg/mL (<=450)
[2025-01-01] MEDS: Iopamidol 755 Mg/ML 100 ML Bottle IV SCH (22:13)
[2025-01-01] MEDS ORDERED: Sodium Chloride 0.9% 10 ML Syringe FLUSH PRN (22:40)
[2025-01-01] MEDS ORDERED: Furosemide 20 MG/2 ML VIAL IVPUSH ONE (22:59)
== END 2025-01-01 23:10 ==
LOC: FB.ED 18:00
DX: J20.9 Acute bronchitis, unspecified (principal); R79.82 Elevated C-reactive protein (CRP); D72.829 Elevated white blood cell count, unspecified; I12.9 Hypertensive chronic kidney disease with stage 1 through stage 4 chronic kidney disease, or unspecified chronic kidney disease; N18.9 Chronic kidney disease, unspecified; E11.22 Type 2 diabetes mellitus with diabetic chronic kidney disease; E03.9 Hypothyroidism, unspecified; Z87.891 Personal history of nicotine dependence; Z79.890 Hormone replacement therapy; Z79.899 Other long term (current) drug therapy; Z79.4 Long term (current) use of insulin; Z86.73 Personal history of transient ischemic attack (TIA), and cerebral infarction without residual deficits
CPT/HCPCS: 36415; 71045; 71260; 74177; 83605; 83880; 84484; 85025; 85379; 86140; 87040; 87428; 93005; 96365; 99285; A9270; J2543; Q9967

== ENCOUNTER 2025-01-06 13:01 | Emergency (ER) | payer MEDICARE, BC ==
[2025-01-06 15:04] LABS: ALANINE AMINOTRANSFERASE,ALT 30.0 U/L (12-36); ASPARTATE AMNIOTRANSFERASE,AST 32.0 IU/L (5-25); BILIRUBIN DIRECT 0.1 mg/dL (0.10-0.20); BILIRUBIN TOTAL 0.3 mg/dL (0.1-1.3); PROTEIN TOTAL,TP 6.2 g/dL (6.0-8.0)
== END 2025-01-06 15:20 ==
LOC: FB.ED 13:01
DX: D72.829 Elevated white blood cell count, unspecified (principal); R79.82 Elevated C-reactive protein (CRP); Z87.01 Personal history of pneumonia (recurrent); I12.9 Hypertensive chronic kidney disease with stage 1 through stage 4 chronic kidney disease, or unspecified chronic kidney disease; N18.9 Chronic kidney disease, unspecified; E11.22 Type 2 diabetes mellitus with diabetic chronic kidney disease; E03.9 Hypothyroidism, unspecified; E66.9 Obesity, unspecified; Z86.73 Personal history of transient ischemic attack (TIA), and cerebral infarction without residual deficits; Z79.899 Other long term (current) drug therapy; Z79.890 Hormone replacement therapy; Z79.4 Long term (current) use of insulin; Z68.41 Body mass index [BMI] 40.0-44.9, adult
CPT/HCPCS: 36415; 80076; 83735; 84484; 93005; 99285

== ENCOUNTER 2025-01-09 19:34 | Inpatient (IN) | payer MEDICARE, BC ==
[2025-01-09] MEDS: Glucose Gel 15 GM in 37.5 GM Tube ONE (19:51)
[2025-01-09] MEDS: Glucose Gel 15 GM in 37.5 GM Tube PO ONE (19:51)
[2025-01-09] MEDS: 50% Dextrose in Water 50 ML Syringe IVPUSH ONE (20:06)
[2025-01-09 20:15] LABS: MEAN PLATELET VOLUME 7.8 fL (7.1-12.4); PLATELET COUNT,PLT 471 x10(3)uL (151-488); RED BLOOD CELL COUNT 3.83 x10(6)uL (3.60-5.20); RED CELL DISTRIBUTION WIDTH 15.7 % (12.3-16.5); WHITE BLOOD CELL COUNT,WBC 14.4 x10-3/uL (3.0-10.3)
[2025-01-09 20:18] LABS: BLOOD UREA NITROGEN,BUN 16 mg/dL (7-18); CARBON DIOXIDE,CO2 32 mmol/L (21-32); CHLORIDE,CL 102 mmol/L (100-110); CREATININE 1.3 mg/dL (0.55-1.02); ESTIMATED GFR 41 mL/min (>60); POTASSIUM,K 3.1 mmol/L (3.5-5.3); SODIUM,NA 142 mmol/L (135-145)
[2025-01-09 20:22] LABS: GLUCOSE RANDOM 43 mg/dL (80-116)
[2025-01-09 20:35] LABS: LYMPHOCYTES PERCENT MAN 11 % (13-37); MONOCYTES PERCENT MAN 5 % (4-12); SEG NEUTROPHILS PERCENT MAN 84 % (46-82)
[2025-01-09 20:43] LABS: PRO B-TYPE NATRIUR PEPT,BNPPRO 861.0 pg/mL (<=450)
[2025-01-09] MEDS: Ampicillin/Sulbactam Na 3 GM in Sodium Chloride 0.9% 100 ML IV SCH (21:32)
[2025-01-09 21:38] LABS: LACTIC ACID 1.1 mmol/L (0.4-2.0)
[2025-01-09 23:41] LABS: INFLUENZA A NAA NEGATIVE (NEGATIVE); INFLUENZA B NAA NEGATIVE (NEGATIVE); RESPIRATORY SYNCYTIAL VIR NAA NEGATIVE (NEGATIVE)
[2025-01-09 23:43] LABS: CORONAVIRUS COVID-19 NAA NEGATIVE (NEGATIVE)
[2025-01-10] MEDS: Sodium Chloride 0.9% 10 ML Syringe FLUSH PRN (06:26)
[2025-01-10] MEDS ORDERED: guaiFENesin 100 MG/5 ML Soln 5 ML UD Cup PO PRN (10:31)
[2025-01-10] MEDS ORDERED: Aluminum Hydroxide/Magnesium Hydroxide Susp 30 ML Cup PO PRN (10:31)
[2025-01-10] MEDS ORDERED: 50% Dextrose in Water 50 ML Syringe IVPUSH PRN ×2 (10:31→10:39)
[2025-01-10] MEDS ORDERED: Carboxymethylcellulose Sodium 0.5% Ophth Soln 15 ML Bottle EYEBOTH PRN (10:51)
[2025-01-10] MEDS: Potassium Chloride 20 MEQ Tab.ER PO SCH (11:39)
[2025-01-10] MEDS: Heparin Sodium 5,000 Units/ML Vial SUBCUT SCH (11:39)
[2025-01-10] MEDS: Ampicillin/Sulbactam Na 3 GM in Sodium Chloride 0.9% 100 ML IV SCH (11:40)
[2025-01-10 12:09] LABS: BASOPHILS ABSOLUTE AUTO 0.1 x10-3/uL (0.0-0.1); BASOPHILS PERCENT AUTO 0.5 % (0.2-1.5); EOSINOPHILS ABSOLUTE AUTO 0.1 x10-3/uL (0.0-0.8); EOSINOPHILS PERCENT AUTO 0.8 % (0.6-8.1); LYMPHOCYTES ABSOLUTE AUTO 1.5 x10-3/uL (1.0-4.4); LYMPHOCYTES PERCENT AUTO 12.7 % (18.4-52.1); MEAN PLATELET VOLUME 7.8 fL (7.1-12.4); MONOCYTES ABSOLUTE AUTO 1.1 x10-3/uL (0.3-1.0); MONOCYTES PERCENT AUTO 9.3 % (4.4-15.7); NEUTROPHILS ABSOLUTE AUTO 9.3 x10-3/uL (1.5-6.3); NEUTROPHILS PERCENT AUTO 76.7 % (30.8-76.2); PLATELET COUNT,PLT 385 x10(3)uL (151-488); RED BLOOD CELL COUNT 3.41 x10(6)uL (3.60-5.20); RED CELL DISTRIBUTION WIDTH 15.6 % (12.3-16.5); WHITE BLOOD CELL COUNT,WBC 12.1 x10-3/uL (3.0-10.3)
[2025-01-10] MEDS: Insulin Lispro 100 Unit/ML 3 ML KwikPen SUBCUT SCH (12:15)
[2025-01-10 12:19] LABS: A/G RATIO 0.5; ALANINE AMINOTRANSFERASE,ALT 19 U/L (12-36); ASPARTATE AMNIOTRANSFERASE,AST 21 IU/L (5-25); BILIRUBIN TOTAL 0.3 mg/dL (0.1-1.3); BLOOD UREA NITROGEN,BUN 14 mg/dL (7-18); CARBON DIOXIDE,CO2 29 mmol/L (21-32); CHLORIDE,CL 101 mmol/L (100-110); CREATININE 1.3 mg/dL (0.55-1.02); EST CRCL DRUG DOSING (CG) 32.44 mL/min; ESTIMATED GFR 41 mL/min (>60); GLUCOSE RANDOM 282 mg/dL (80-116); POTASSIUM,K 3.4 mmol/L (3.5-5.3); PROTEIN TOTAL,TP 6.6 g/dL (6.0-8.0); SODIUM,NA 139 mmol/L (135-145)
[2025-01-10] MEDS: Iopamidol 755 Mg/ML 100 ML Bottle IV SCH (16:00)
[2025-01-10] MEDS: Magnesium Sulf 1 GM/2 mL SDV 1 GM in Sodium Chloride 0.9% 50 ML IV ONE (18:02)
[2025-01-10] MEDS: Potassium Chloride 20 MEQ Tab.ER PO ONE (18:02)
[2025-01-10] MEDS ORDERED: Insulin Glargine,Human Rec. Analog 100 Units/ML 3 ML Pen SUBCUT SCH (21:00)
[2025-01-10] MEDS: Insulin Glargine,Human Rec. Analog 100 Units/ML 3 ML Pen SUBCUT SCH (21:35)
[2025-01-11] MEDS ORDERED: Non-Formulary Medication 1 Each (Levothyroxine Sodium [Synthroid] 125 MCG Tablet) PO SCH (06:00)
[2025-01-11 06:53] LABS: BASOPHILS ABSOLUTE AUTO 0.0 x10-3/uL (0.0-0.1); BASOPHILS PERCENT AUTO 0.5 % (0.2-1.5); EOSINOPHILS ABSOLUTE AUTO 0.2 x10-3/uL (0.0-0.8); EOSINOPHILS PERCENT AUTO 2.3 % (0.6-8.1); LYMPHOCYTES ABSOLUTE AUTO 1.4 x10-3/uL (1.0-4.4); LYMPHOCYTES PERCENT AUTO 14.7 % (18.4-52.1); MEAN PLATELET VOLUME 7.9 fL (7.1-12.4); MONOCYTES ABSOLUTE AUTO 1.0 x10-3/uL (0.3-1.0); MONOCYTES PERCENT AUTO 10.4 % (4.4-15.7); NEUTROPHILS ABSOLUTE AUTO 6.8 x10-3/uL (1.5-6.3); NEUTROPHILS PERCENT AUTO 72.1 % (30.8-76.2); PLATELET COUNT,PLT 365 x10(3)uL (151-488); RED BLOOD CELL COUNT 3.16 x10(6)uL (3.60-5.20); RED CELL DISTRIBUTION WIDTH 15.4 % (12.3-16.5); WHITE BLOOD CELL COUNT,WBC 9.4 x10-3/uL (3.0-10.3)
[2025-01-11 06:58] LABS: A/G RATIO 0.4; ALANINE AMINOTRANSFERASE,ALT 15 U/L (12-36); ASPARTATE AMNIOTRANSFERASE,AST 20 IU/L (5-25); BILIRUBIN TOTAL 0.2 mg/dL (0.1-1.3); BLOOD UREA NITROGEN,BUN 11 mg/dL (7-18); CARBON DIOXIDE,CO2 30 mmol/L (21-32); CHLORIDE,CL 105 mmol/L (100-110); CREATININE 1.1 mg/dL (0.55-1.02); EST CRCL DRUG DOSING (CG) 38.34 mL/min; ESTIMATED GFR 50 mL/min (>60); GLUCOSE RANDOM 146 mg/dL (80-116); POTASSIUM,K 3.5 mmol/L (3.5-5.3); PROTEIN TOTAL,TP 6.0 g/dL (6.0-8.0); SODIUM,NA 142 mmol/L (135-145)
[2025-01-12 00:52] LABS: C. DIFF TOXIN B GENE TCDB,PCR Detected
[2025-01-12 06:44] LABS: BASOPHILS ABSOLUTE AUTO 0.1 x10-3/uL (0.0-0.1); BASOPHILS PERCENT AUTO 0.5 % (0.2-1.5); EOSINOPHILS ABSOLUTE AUTO 0.3 x10-3/uL (0.0-0.8); EOSINOPHILS PERCENT AUTO 2.8 % (0.6-8.1); LYMPHOCYTES ABSOLUTE AUTO 1.5 x10-3/uL (1.0-4.4); LYMPHOCYTES PERCENT AUTO 13.4 % (18.4-52.1); MEAN PLATELET VOLUME 7.3 fL (7.1-12.4); MONOCYTES ABSOLUTE AUTO 1.0 x10-3/uL (0.3-1.0); MONOCYTES PERCENT AUTO 9.3 % (4.4-15.7); NEUTROPHILS ABSOLUTE AUTO 8.2 x10-3/uL (1.5-6.3); NEUTROPHILS PERCENT AUTO 74.0 % (30.8-76.2); PLATELET COUNT,PLT 367 x10(3)uL (151-488); RED BLOOD CELL COUNT 3.12 x10(6)uL (3.60-5.20); RED CELL DISTRIBUTION WIDTH 15.5 % (12.3-16.5); WHITE BLOOD CELL COUNT,WBC 11.1 x10-3/uL (3.0-10.3)
[2025-01-12 06:50] LABS: BLOOD UREA NITROGEN,BUN 8 mg/dL (7-18); CARBON DIOXIDE,CO2 29 mmol/L (21-32); CHLORIDE,CL 106 mmol/L (100-110); CREATININE 1.0 mg/dL (0.55-1.02); EST CRCL DRUG DOSING (CG) 42.18 mL/min; ESTIMATED GFR 56 mL/min (>60); GLUCOSE RANDOM 144 mg/dL (80-116); POTASSIUM,K 3.5 mmol/L (3.5-5.3); SODIUM,NA 142 mmol/L (135-145)
[2025-01-13 06:59] LABS: BASOPHILS ABSOLUTE AUTO 0.0 x10-3/uL (0.0-0.1); BASOPHILS PERCENT AUTO 0.4 % (0.2-1.5); BLOOD UREA NITROGEN,BUN 8 mg/dL (7-18); CARBON DIOXIDE,CO2 28 mmol/L (21-32); CHLORIDE,CL 105 mmol/L (100-110); CREATININE 1.0 mg/dL (0.55-1.02); EOSINOPHILS ABSOLUTE AUTO 0.3 x10-3/uL (0.0-0.8); EOSINOPHILS PERCENT AUTO 3.2 % (0.6-8.1); EST CRCL DRUG DOSING (CG) 42.18 mL/min; ESTIMATED GFR 56 mL/min (>60); GLUCOSE RANDOM 140 mg/dL (80-116); LYMPHOCYTES ABSOLUTE AUTO 1.4 x10-3/uL (1.0-4.4); LYMPHOCYTES PERCENT AUTO 13.2 % (18.4-52.1); MEAN PLATELET VOLUME 7.6 fL (7.1-12.4); MONOCYTES ABSOLUTE AUTO 0.9 x10-3/uL (0.3-1.0); MONOCYTES PERCENT AUTO 8.7 % (4.4-15.7); NEUTROPHILS ABSOLUTE AUTO 7.6 x10-3/uL (1.5-6.3); NEUTROPHILS PERCENT AUTO 74.5 % (30.8-76.2); PLATELET COUNT,PLT 384 x10(3)uL (151-488); POTASSIUM,K 3.7 mmol/L (3.5-5.3); RED BLOOD CELL COUNT 3.08 x10(6)uL (3.60-5.20); RED CELL DISTRIBUTION WIDTH 15.4 % (12.3-16.5); SODIUM,NA 141 mmol/L (135-145); WHITE BLOOD CELL COUNT,WBC 10.2 x10-3/uL (3.0-10.3)
[2025-01-15] MEDS ORDERED: PYRITHIONE ZINC TOP SCH (10:31)
== END 2025-01-13 13:20 | DRG 371 ==
LOC: FB.ED 19:34 → FB.MS 22:03
PROVIDERS: ADMIT Family Medicine; ATTEND Internal Medicine
DX: A04.72 Enterocolitis due to Clostridium difficile, not specified as recurrent (principal); J96.01 Acute respiratory failure with hypoxia; F02.84 Dementia in other diseases classified elsewhere, unspecified severity, with anxiety; F02.83 Dementia in other diseases classified elsewhere, unspecified severity, with mood disturbance; R65.10 Systemic inflammatory response syndrome (SIRS) of non-infectious origin without acute organ dysfunction; E83.42 Hypomagnesemia; Z66 Do not resuscitate; E11.40 Type 2 diabetes mellitus with diabetic neuropathy, unspecified; E87.6 Hypokalemia; G47.30 Sleep apnea, unspecified; E03.9 Hypothyroidism, unspecified; E66.9 Obesity, unspecified; M19.90 Unspecified osteoarthritis, unspecified site; N18.9 Chronic kidney disease, unspecified; G30.9 Alzheimer's disease, unspecified; E11.649 Type 2 diabetes mellitus with hypoglycemia without coma; E11.22 Type 2 diabetes mellitus with diabetic chronic kidney disease; I12.9 Hypertensive chronic kidney disease with stage 1 through stage 4 chronic kidney disease, or unspecified chronic kidney disease; S09.90XA Unspecified injury of head, initial encounter; Z86.73 Personal history of transient ischemic attack (TIA), and cerebral infarction without residual deficits; Z68.38 Body mass index [BMI] 38.0-38.9, adult; Z79.890 Hormone replacement therapy; Z79.1 Long term (current) use of non-steroidal anti-inflammatories (NSAID); Z79.4 Long term (current) use of insulin; Z79.2 Long term (current) use of antibiotics; Z98.890 Other specified postprocedural states; Z98.49 Cataract extraction status, unspecified eye; Z90.721 Acquired absence of ovaries, unilateral; Z87.01 Personal history of pneumonia (recurrent); Z79.899 Other long term (current) drug therapy; W18.30XA Fall on same level, unspecified, initial encounter; Y92.89 Other specified places as the place of occurrence of the external cause
CPT/HCPCS: 36415; 70450; 71045; 71275; 71275-26; 72125; 80048; 80053; 82947; 83605; 83735; 83880; 84484; 85025; 86140; 87040; 87230; 87486; 87493; 87581; 87633; 87637; 87798; 93005; 93010; 93306; 96365; 96375; 99223; 99232; 99233; 99238; 99285; 99285-25; A9270-GY; J0295; J1644; J1815-GY; J7030; Q9967